=== PATIENT | male | born 1955 | race Caucasian/White ===

== ENCOUNTER → 2024-06-05 | Outpatient (CLI) | payer MEDICARE, SELFPAY ==
[2024-06-05 13:26] LABS: Collection Type, Urine Clean Catch; Squamous Epithelial Cell,Urine 0 /hpf (0-5)
[2024-06-05 13:46] LABS: Basophils % (Auto) 0 % (0-2.5); Eosinophils # (Auto) 0.3 Thou/mm3 (0.0-0.5); Eosinophils % (Auto) 3 % (0-10); Hematocrit 44.4 % (41.0-53.0); Immature Granulocytes % (Auto) 1 % (0-0); Immature Granulocytes Auto 0.05 Thou/mm3 (0.00-0.00); Lymphocytes # (Auto) 0.4 Thou/mm3 (1.0-4.8); Lymphocytes % (Auto) 5 % (10-50); Mean Corpuscular HGB Conc 31.5 g/dl (31.0-37.0); Mean Corpuscular Hemoglobin 30.2 pg (25.0-35.0); Mean Corpuscular Volume 96 fL (80-100); Monocytes # (Auto) 0.7 Thou/mm3 (0.0-0.8); Monocytes % (Auto) 7 % (0-12); Neutrophils # (Auto) 7.3 Thou/mm3 (1.8-7.7); Neutrophils % (Auto) 84 % (37-80); Nucleated Red Blood Cell % 0 /100 WBC (0); Platelet Count 146 Thou/mm3 (140-440); RDW Standard Deviation 51.4 fL (35.1-43.9); Red Blood Count 4.64 Miln/mm3 (4.50-5.90); White Blood Count 8.8 Thou/mm3 (3.8-10.6)
[2024-06-05 13:57] LABS: Bacteria,Urine 1+; Bilirubin,Urine Negative (Negative); Blood,Urine 2+ (Negative); Color,Urine Lt-Yellow (Lt Yel-Yel); Glucose, Urine Negative (Negative); Ketones,Urine Negative (Negative); Leukocyte Esterase,Urine Positive (Negative); Nitrite,Urine Negative (Negative); Protein,Urine 2+ (Neg - Trace); RBC,Urine 47 /hpf (0-3); Specific Gravity,Urine 1.016 (1.001-1.035); Urobilinogen,Urine Negative mg/dL (0.0-1.0); WBC,Urine 425 /hpf (0-5)
[2024-06-05 14:10] LABS: Clarity,Urine Hazy (Clear/Hazy)
[2024-06-05 14:12] LABS: Parathyroid Hormone Intact 97.8 pg/ml (18.5-88.0)
[2024-06-05 14:24] LABS: Alanine Aminotransferase 23 U/L (10-49); Albumin, Serum 4.4 gm/dL (3.4-4.8); Albumin/Globulin Ratio 1.8 (1.2-2.2); Alkaline Phosphatase 132 U/L (46-116); Anion Gap 4 (7-16); Aspartate Amino Transferase 19 U/L (0-34); BUN/Creatinine Ratio 21 Ratio (12-20); Bilirubin,Total 0.6 mg/dL (0.3-1.2); Blood Urea Nitrogen 29 mg/dL (9-23); Carbon Dioxide 33.9 mMol/L (20.0-31.0); Chloride 103 mMol/L (98-107); Cholesterol 149 mg/dL (132-200); Creatinine (Component) 1.4 mg/dL (0.6-1.3); Globulin 2.4 gm/dL (2.3-3.5); Glucose 91 mg/dL (74-106); HDL Cholesterol 50 mg/dL (40-60); LDL Cholesterol,Calculated 79 mg/dL (0-130); Osmolality,Calculated 287 (275-295); Potassium 4.7 mMol/L (3.4-5.1); Sodium 141 mMol/L (136-145); Total Protein 6.8 gm/dL (5.7-8.2); Triglycerides 102 mg/dL (30-150); eGFR 54 See Note
[2024-06-05 14:24] LABS: Creatinine MALB Rnd Ur 82 mg/dL (30-125); Microalbumin Creat Ratio 516 mg/gCrea (<30); Microalbumin, Random Urine 423 mg/L (0-300)
== END | disposition home or self-care (01) ==
LOC: COPL 11:51
PROVIDERS: PCP Family Medicine; Referring Provider Internal Medicine; Visit Provider Internal Medicine
DX: N39.0 Urinary tract infection, site not specified (principal); I12.9 Hypertensive chronic kidney disease with stage 1 through stage 4 chronic kidney disease, or unspecified chronic kidney disease; N18.30 Chronic kidney disease, stage 3 unspecified; E78.5 Hyperlipidemia, unspecified
CPT/HCPCS: 36415; 80053; 80061; 81001; 82043; 82570; 83970; 85025

== ENCOUNTER → 2024-10-05 | Outpatient (CLI) | payer MEDICARE, SELFPAY ==
[2024-10-05 10:04] LABS: Collection Type, Urine Clean Catch
[2024-10-05 10:38] LABS: Basophils % (Auto) 0 % (0-2.5); Eosinophils # (Auto) 0.2 Thou/mm3 (0.0-0.5); Eosinophils % (Auto) 2 % (0-10); Hematocrit 44.1 % (41.0-53.0); Immature Granulocytes % (Auto) 1 % (0-0); Immature Granulocytes Auto 0.05 Thou/mm3 (0.00-0.00); Lymphocytes # (Auto) 0.5 Thou/mm3 (1.0-4.8); Lymphocytes % (Auto) 6 % (10-50); Mean Corpuscular HGB Conc 31.7 g/dl (31.0-37.0); Mean Corpuscular Hemoglobin 30.4 pg (25.0-35.0); Mean Corpuscular Volume 96 fL (80-100); Monocytes # (Auto) 0.6 Thou/mm3 (0.0-0.8); Monocytes % (Auto) 8 % (0-12); Neutrophils # (Auto) 6.7 Thou/mm3 (1.8-7.7); Neutrophils % (Auto) 83 % (37-80); Nucleated Red Blood Cell % 0 /100 WBC (0); Platelet Count 159 Thou/mm3 (140-440); RDW Standard Deviation 46.1 fL (35.1-43.9); White Blood Count 8.1 Thou/mm3 (3.8-10.6)
[2024-10-05 10:52] LABS: Alanine Aminotransferase 14 U/L (10-49); Albumin, Serum 4.2 gm/dL (3.4-4.8); Albumin/Globulin Ratio 1.7 (1.2-2.2); Alkaline Phosphatase 144 U/L (46-116); Anion Gap 7 (7-16); Aspartate Amino Transferase 19 U/L (0-34); BUN/Creatinine Ratio 18 Ratio (12-20); Bilirubin,Total 0.7 mg/dL (0.3-1.2); Blood Urea Nitrogen 21 mg/dL (9-23); Calcium 9.2 mg/dL (8.3-10.6); Calcium (Corrected) 9.2 mg/dL (8.5-10.1); Carbon Dioxide 32.6 mMol/L (20.0-31.0); Cardiac Risk Estimate 2.8 RATIO (4.0-6.7); Chloride 103 mMol/L (98-107); Cholesterol 133 mg/dL (132-200); Creatinine (Component) 1.2 mg/dL (0.6-1.3); Globulin 2.5 gm/dL (2.3-3.5); Glucose 104 mg/dL (74-106); HDL Cholesterol 47 mg/dL (40-60); LDL Cholesterol,Calculated 61 mg/dL (0-130); Osmolality,Calculated 287 (275-295); Potassium 4.4 mMol/L (3.4-5.1); Sodium 143 mMol/L (136-145); Total Protein 6.7 gm/dL (5.7-8.2); Triglycerides 123 mg/dL (30-150); eGFR > 60 See Note
[2024-10-05 10:59] LABS: Creatinine MALB Rnd Ur 82 mg/dL (30-125)
[2024-10-05 11:10] LABS: Amorphous Crystals,Urine Present (Absent); Bacteria,Urine Rare; Bilirubin,Urine Negative (Negative); Blood,Urine 1+ (Negative); Clarity,Urine Turbid (Clear/Hazy); Color,Urine Yellow (Lt Yel-Yel); Glucose, Urine Negative (Negative); Ketones,Urine Negative (Negative); Leukocyte Esterase,Urine Positive (Negative); Nitrite,Urine Positive (Negative); PH,Urine 7.5 (5.0-7.0); Protein,Urine 2+ (Neg - Trace); RBC,Urine 56 /hpf (0-3); Specific Gravity,Urine 1.016 (1.001-1.035); Squamous Epithelial Cell,Urine 1 /hpf (0-5); Urobilinogen,Urine Negative mg/dL (0.0-1.0); WBC,Urine 272 /hpf (0-5)
[2024-10-05 11:15] LABS: Microalbumin Creat Ratio 711 mg/gCrea (<30); Microalbumin, Random Urine 583 mg/L (0-300)
== END | disposition home or self-care (01) ==
PROVIDERS: PCP Internal Medicine; Referring Provider Internal Medicine; Visit Provider Internal Medicine
DX: I10 Essential (primary) hypertension (principal); E78.5 Hyperlipidemia, unspecified
CPT/HCPCS: 36415; 80053; 80061; 81001; 82043; 82570; 85025

== ENCOUNTER → 2024-12-11 | Outpatient (CLI) | payer MEDICARE, SELFPAY ==
[2024-12-11 09:32] LABS: Albumin, Serum 4.7 gm/dL (3.4-4.8); Anion Gap 5 (7-16); BUN/Creatinine Ratio 16 Ratio (12-20); Blood Urea Nitrogen 22 mg/dL (9-23); Calcium 9.2 mg/dL (8.3-10.6); Calcium (Corrected) 9.2 mg/dL (8.5-10.1); Chloride 103 mMol/L (98-107); Creatinine (Component) 1.4 mg/dL (0.6-1.3); Glucose 101 mg/dL (74-106); Osmolality,Calculated 282 (275-295); Phosphorous 3.3 mg/dL (2.4-5.1); Sodium 140 mMol/L (136-145); eGFR 54 See Note
[2024-12-11 09:32] LABS: Creatinine MALB Rnd Ur 65 mg/dL (30-125); Microalbumin Creat Ratio 432 mg/gCrea (<30); Microalbumin, Random Urine 281 mg/L (0-300)
== END | disposition home or self-care (01) ==
LOC: COPL 08:26
PROVIDERS: PCP Internal Medicine; Referring Provider Internal Medicine; Visit Provider Internal Medicine
DX: I12.9 Hypertensive chronic kidney disease with stage 1 through stage 4 chronic kidney disease, or unspecified chronic kidney disease (principal); N18.30 Chronic kidney disease, stage 3 unspecified; R80.0 Isolated proteinuria
CPT/HCPCS: 36415; 80069; 82043; 82570

== ENCOUNTER 2025-02-02 08:51 | Inpatient (IN) | payer MEDICARE, SELFPAY ==
[2025-02-02] VITALS (20 sets, daily range): BP systolic 130–189; BP diastolic 61–77; PULSE 19–110; RESP 10–37; TEMP 36.3–39; O2SAT 89–949; BMI 30.5; BMI 34.4
--- NOTE | 2025-02-02 08:58 | PD.EDSOB ---
ED SOB =RME/HPI General Chief Complaint: General Adult/Misc Complain Stated Complaint: GENERAL WEAKNESS Time Seen by Provider: 02/02/25 09:18 Arrival date/time: 02/02/25 08:51 Limitations: no limitations RME / HPI RME / HPI Narrative: DR. AUGUSTE MAIN ED EVALUATION: 69 year old male with past medical history significant for COPD, hypertension, hypercholesterolemia, bladder cancer, had bladder removed and has ileoconduct presents to the Emergency Department BIB with complaint of shortness of breath. Here, patient had a 102.2 F oral temperature and 101.7 F rectally. Related Data Home Medications ?Medication ?Instructions ?Recorded ?Confirmed albuterol sulfate 90 mcg/actuation 2 puff inhalation Q4H PRN sob #0 07/09/14 12/06/22 aerosol inhaler (ProAir HFA) inhalations tiotropium bromide 18 mcg capsule 1 cap inhalation QDAY #0 puffs 07/09/12/06/22 with inhalation device (Spiriva with HandiHaler) amlodipine 10 mg tablet 10 mg PO HS 10/29/22 12/03/22 baclofen 10 mg tablet 10 mg PO TID 10/29/22 12/03/22 fluticasone 500 mcg-salmeterol 50 1 inh inhalation Q12H 10/29/22 12/03/22 mcg/dose blistr powdr for inhalation (Advair Diskus) ipratropium 0.5 mg-albuterol 3 mg 3 ml inhalation Q6H PRN Dyspnea 10/29/22 12/06/22 (2.5 mg base)/3 mL nebulization soln erythromycin 2 % topical ointment ea topical 12/03/22 Allergies Allergy/AdvReac Type Severity Reaction Status Date / Time heparin Allergy Unknown Verified 04/28/23 17:15 Review of Systems Review of Systems Systems Reviewed: All systems reviewed, normal except as documented Past Medical History Past Medical History CARDIAC: Positive Cardiac Disorders, Hypercholesterolemia and Hypertension RESPIRATORY: Positive Chronic Obstructive Pulmonary Disease (COPD), Bronchitis and Pneumonia GASTROINTESTINAL: Positive Gastrointestinal Disorders and Obesity GENITOURINARY: Positive Genitourinary Disorders (had bladder removed, has ileoconduct) and Renal Disease MUSCULOSKELETAL: Positive Arthritis and Fractures (right arm) ENT: Positive Cataracts (an) OTHER HISTORY: Positive Hospitalization, Chemotherapy and Cancer (bladder cancer) Surgical History SURGICAL: Positive Tonsillectomy and Transurethral Resection Social History SMOKING STATUS: Former smoker SUBSTANCE USE: does not use ALCOHOL: Never ED Exam General Limitations: Present no limitations General appearance: Present alert and other (in respiratory distress, on an oxygen mask) Head Head exam: Present atraumatic, normocephalic and normal inspection Eye Eye exam: Present normal appearance, PERRL and EOMI ENT ENT exam: Present normal exam, normal oropharynx and mucous membranes moist Neck Neck exam: Present normal inspection, full ROM and trachea midline Expanded Neck Exam Neck exam focused ED: Absent JVD Chest Chest inspection: Present normal inspection and symmetric chest wall rise Respiratory Respiratory exam: Present respiratory distress, wheezes (bilateral expiratory wheezing) and other (no rhonchi, no crackles) Cardiovascular Cardiovascular exam: Present normal rhythm, tachycardia and normal heart sounds Abdominal Exam Abdominal exam: Present soft, normal bowel sounds and other (there is an ileoconduct in place in the right side of the abdomen with clear urine); Absent tenderness Extremities Exam Extremities exam: Present full ROM and pedal edema (1+ pitting edema bilaterally; mild venous stasis) Back Exam Back exam: Present normal inspection and full ROM Neurological Exam Neurological exam: Present alert, oriented X3 and CN II-XII intact Psychiatric Psychiatric exam: Present normal affect and normal mood Skin Skin exam: Present warm, dry, intact and normal color Course Course Course Narrative: 0859: Sepsis alert initiated. Orders made at this time are congruent with ED Adult Sepsis Order List. Re-evaluation is to be completed. 0943: Fluids started. 1013: Sepsis reassessment performed consisting of lab review, vitals, physical exam including auscultation of heart, lungs, and visual evaluation of capillary refills, mucosal membranes and extremities. Quality Measures Current suspected stage: sepsis Possible source: pulmonary Blood cultures ordered: yes Antibiotic ordered: Yes Pertinent labs: 02/02/25 09:17 Lactic Acid 1.5 mMol/L (0.4-2.0) sepsis Orders Category Date Time Status Bedside COVID-19 Antigen Test NOW Care 02/02/25 09:50 Active Bedside Influenza A&B Antigen Test NOW Care 02/02/25 09:50 Completed COVID-19 Screening Questionnaire NOW Care 02/02/25 13:02 Active Decision to Admit X1 Care 02/02/25 13:02 Active EKG (ED ONLY) *Do not use* NOW Care 02/02/25 09:19 Completed Insert [Insert IV] NOW Care 02/02/25 09:19 Active CXR [XR chest 1V post procedure] Stat Exams 02/02/25 09:16 Completed EKG (ED Only) Stat Exams 02/02/25 09:19 Draft ABG [Arterial Blood Gas] Stat Lab 02/02/25 09:25 Completed B-Type Natriuretic Peptide Stat Lab 02/02/25 09:40 Completed Blood Culture (Lab) Stat Lab 02/02/25 09:44 Received CBC Stat Lab 02/02/25 09:40 Completed CMP [Comprehensive Metabolic Panel] Stat Lab 02/02/25 09:40 Completed Lactic Acid [Lactate (Lactic Acid)] Stat Lab 02/02/25 09:17 Completed Magnesium Stat Lab 02/02/25 09:40 Completed Partial Thromboplastin Time Stat Lab 02/02/25 09:40 Completed Prothrombin Time with INR Stat Lab 02/02/25 09:40 Completed Troponin I Stat Lab 02/02/25 09:40 Completed Troponin I Stat Lab 02/02/25 11:43 Completed Urinalysis Stat Lab 02/02/25 11:37 Completed ALBUTEROL RT 3ml [Proventil Rt 3ml] Med 02/02/25 09:19 Discontinued 5 mg INH X1 ONE Azithromycin Inj [Zithromax Inj] 500 mg Med 02/02/25 09:21 Discontinued Sodium Chloride 0.9% 250 ml [Ns] 250 ml IV X1 Furosemide Inj [Lasix Inj] Med 02/02/25 09:12 Discontinued 80 mg IVP X1 ONE MethylPREDNISolone.* [SoluMEDROL Inj] Med 02/02/25 09:19 Discontinued 125 mg IVP X1 ONE Sodium Chloride 0.9% 500 ml [Ns] 500 ml Med 02/02/25 09:19 Discontinued IV 999 mls/hr cefTRIAXone [Rocephin] 2 gm Med 02/02/25 09:20 Discontinued SODIUM CHLORIDE 0.9% (Popper) [Ns 0.9% (P)] 50 ml IV X1 BiPAP / CPAP NOW RT 02/02/25 09:46 Active Vital Signs Vital signs: Vital Signs Temperature 102.2 F H 02/02/25 08:59 Pulse Rate 110 H 02/02/25 08:59 Respiratory Rate 21 H 02/02/25 08:59 Blood Pressure 189/61 H 02/02/25 08:59 Pulse Oximetry (%) 89 L 02/02/25 08:59 Oxygen Delivery Method Oxy Mask 02/02/25 08:59 Oxygen Flow Rate 15 02/02/25 08:59 Shortness of Breath / Dyspnea MDM Narrative MDM Narrative:: I, Sandra Huggins, am scribing for and in the presence of Dr. Auguste. Patient has right pneumonia, respiratory failure, exacerbation of COPD, and elevated troponin. Ordered a second trop and plan to admit. Second troponin increasing will admit. Patient data External records reviewed:: [facility] previous records and EMS form Clinical information provided by:: patient and EMS Social determinants that could affect healthcare access:: other (specify) (smoking, former) Patient has the following chronic illnesses:: COPD, hypertension, hypercholesterolemia, bladder cancer, had bladder removed and has ileoconduct. How is presenting disease/condition affected by chronic disease/condition?: caused by Evaluation data The following diagnostics were reviewed and interpreted by me:: lab results, radiology exam(s) and EKG tracing(s) Lab and/or radiology exams considered but not ordered:: none Interpretation Summary: My interpretation: EKG performed at 1014 hours, sinus rhythm, rate 97, right bundle branch block, no STEMI Procedure(s): XR chest 1V post procedure Accession Number(s): [id number] cc: Alberto Garg MD; Radha Davila MD; Abhinav Garcias MD~ Examination: AP chest single view Technique: AP upright portable chest single view Date and time: February 02, 2025, 0927 hrs. Comparison April 28, 2023 Indications: Coughing shortness of breath chest pain beginning today Findings: Opacity right base consistent with pneumonia Mild enlargement cardiac contour Central pulmonary arteries are prominent No pulmonary edema. Moderate osteopenia Impression: Right base pneumonia Suspicious for pulmonary artery hypertension. Dictated By: Alberto Garg MD Medications / Prescriptions Medications or Prescriptions considered but not ordered:: none Medication administrations:: Medication Administration History Discontinued Medications Albuterol (Albuterol Rt 2.5 Mg/3 Ml Nebu) 5 mg INH X1 ONE Stop: 02/02/25 09:20 Last Admin: 02/02/25 09:52 Dose: 5 mg Documented By: HANNAH Furosemide (Furosemide Inj 10 Mg/Ml 4ml Vial) 80 mg IVP X1 ONE Stop: 02/02/25 09:13 Last Admin: 02/02/25 09:16 Dose: Not Given Documented By: KATINA Non-Admin Reason: Discontinued Sodium Chloride (Ns) 500 mls @ 999 mls/hr IV .Q31M ONE Stop: 02/02/25 09:49 Last Infusion: 02/02/25 12:22 Dose: Infused Documented By: Admin: 02/02/25 09:43 Dose: 999 mls/hr Documented By: KATINA Ceftriaxone Sodium 2 gm/ (Sodium Chloride) 50 mls @ 100 mls/hr IV X1 ONE Stop: 02/02/25 09:49 Last Infusion: 02/02/25 12:22 Dose: Infused Documented By: Admin: 02/02/25 09:41 Dose: 100 mls/hr Documented By: KATINA Azithromycin 500 mg/ Sodium (Chloride) 250 mls @ 250 mls/hr IV X1 ONE Stop: 02/02/25 10:20 Last Infusion: 02/02/25 11:00 Dose: Infused Documented By: Admin: 02/02/25 09:41 Dose: 250 mls/hr Documented By: KATINA Methylprednisolone Sodium Succinate (Methylprednisolone Sod Succ 62.5 Mg/Ml 2ml Vial) 125 mg IVP X1 ONE Stop: 02/02/25 09:20 Last Admin: 02/02/25 09:40 Dose: 125 mg Documented By: KATINA see above if any Consultations Consultation(s) initiated? (list below): Yes Consultation #1 (Physician, Specialty, Details): Discussed test HPI, PMHx, lab, radiology results and/or management with resident working with the hospitalist. Will admit for further evaluation and management. Accepts patient for admission. Time: 13:06 Diagnosis Shortness of Breath Differential Diagnosis: acute exacerbation of chronic obstructive airways disease, congestive heart failure, community acquired pneumonia, asthma with exacerbation and pulmonary embolism Most likely diagnosis given after review of the tests above:: Right pneumonia Respiratory failure Exacerbation of COPD Elevated troponin Admission Indicated Admission indicated?: indicated Admission Request Was there a request for admission?: Yes Admission Attestation Admission request attestation: Discussed case with [] from Hospitalist service regarding admission. Discussed patients ED course, exam findings, labs, and radiology results. The Hospitalist [agrees,declines] to accept the patient for admission. Disposition Plan Disposition Plan: Admit Critical Care Time Critical Care Time Critical Care Time: Yes Total Critical Care Time (min.): 40 Attestation: The high probability of sudden, clinically significant deterioration in the patient?s condition required the highest level of my preparedness to intervene urgently. The services I provided to this patient were to treat and/or prevent clinically significant deterioration. Services included the following: chart data review, reviewing nursing notes and/or old charts, documentation time, information consultant collaboration regarding findings and treatment options, medication orders and management, direct patient care, vital sign assessments and ordering, interpreting and reviewing diagnostic studies and lab tests. Aggregate critical care time includes only time during which I was engaged in work directly related to the patient?s care, as described above, whether at bedside or elsewhere in the Emergency Department. It did not include time spent performing other reported procedures or the services of residents, students, nurses or physician assistants. Discharge Plan Prescriptions/Referrals Prescriptions/Med Rec: No Action albuterol sulfate [ProAir HFA] 90 mcg/actuation Hfa Aerosol Inhaler 2 puff INHALATION Q4H PRN (Reason: sob) Qty: 0 Spiriva with HandiHaler 18 mcg Capsule, W/Inhalation Device 1 cap INHALATION QDAY Qty: 0 erythromycin 2 % Ointment TOPICAL ipratropium-albuterol 0.5 mg-3 mg(2.5 mg base)/3 mL Solution For Nebulization 3 ml INHALATION Q6H PRN (Reason: Dyspnea) baclofen 10 mg Tablet 10 mg PO TID amlodipine 10 mg Tablet 10 mg PO HS fluticasone propion-salmeterol [Advair Diskus] 500-50 mcg/dose Blister With Device 1 inh INHALATION Q12H Referrals: Radha Davila MD [Primary Care Provider] - In 1 week Problem List Clinical Impression: Pneumonia involving right lung, COPD exacerbation, Elevated troponin, Respiratory failure Patient/Caregiver Discharge Instructions Print Language: Wolof
--- NOTE | 2025-02-02 09:16 | XR_ITS ---
Examination: AP chest single view Technique: AP upright portable chest single view Date and time: February 02, 2025, 0927 hrs. Comparison April 28, 2023 Indications: Coughing shortness of breath chest pain beginning today Findings: Opacity right base consistent with pneumonia Mild enlargement cardiac contour Central pulmonary arteries are prominent No pulmonary edema. Moderate osteopenia Impression: Right base pneumonia Suspicious for pulmonary artery hypertension.
--- NOTE | 2025-02-02 09:19 | EKG_ITS ---
[facility] Test Date: 2025-02-02 Pat Name: EMILIANO FREGOSO Department: Room: - Gender: Male Machine Maintenance: : 1955 Requested By: Mihai Ann Order Number: [id number] Reading MD: Mihai Ann Measurements Intervals [place] Rate: 97 P: 63 VA: 156 QRS: -15 QRSD: 124 T: 37 QT: 323 QTc: 411 Interpretive Statements SINUS RHYTHM INDETERMINATE AXIS RIGHT BUNDLE BRANCH BLOCK [120+ ms QRS DURATION, UPRIGHT V1, 40+ ms S IN I/aVL/V4/V5/V6] Compared to ECG 10/29/2022 09:55:23 Indeterminate axis now present Atrial fibrillation no longer present Left-axis deviation no longer present /store/S0/[id number]/ecg/[id number].pdf
[2025-02-02 09:32] LABS: Base Excess 0 (-3-3); HCO3 30 mEq/L (20-26); Inspired Oxygen, FIO2 21 %; O2 Saturation 92 % (91-98); PCO2 75 mmHg (32.0-48.0); PO2 77 mmHg (83-108); pH, Arterial 7.21 (7.35-7.45)
[2025-02-02 09:33] LABS: Allen Test Performed/OK; Puncture Site Left Radial
[2025-02-02] MEDS: MethylPREDNISolone SOD SUCC 62.5 MG/ML 2ML VIAL 125 MG IVP (09:40)
[2025-02-02] MEDS: cefTRIAXone 2 GM in SODIUM CHLORIDE 0.9% (Popper) 50 ML IV (09:41)
[2025-02-02] MEDS: AZITHROMYCIN INJ 500 MG in SODIUM CHLORIDE 0.9% 250 ML 250 ML 250 MG IV (09:41)
[2025-02-02] MEDS: SODIUM CHLORIDE 0.9% 500 ML 500 ML 999 ML IV (09:43)
[2025-02-02] MEDS: ALBUTEROL RT 2.5 MG/3 ML NEBU 5 MG INH (09:52)
[2025-02-02 09:58] LABS: Lactate (Lactic Acid) 1.5 mMol/L (0.4-2.0)
[2025-02-02 10:15] LABS: INR 1.0 (0.9-1.3); Partial Thromboplastin Time 28.2 Seconds (22.0-36.0); Prothrombin Time 11.2 Seconds (9.0-12.2)
[2025-02-02 10:20] LABS: B-Type Natriuretic Peptide 42 pg/mL (0-100)
[2025-02-02 10:29] LABS: Basophils # (Auto) 0.0 Thou/mm3 (0.0-0.2); Basophils % (Auto) 0 % (0-2.5); Eosinophils # (Auto) 0.0 Thou/mm3 (0.0-0.5); Eosinophils % (Auto) 0 % (0-10); Hematocrit 43.5 % (41.0-53.0); Hemoglobin 13.6 g/dL (13.5-16.0); Immature Granulocytes Auto 0.09 Thou/mm3 (0.00-0.00); Lymphocytes # (Auto) 0.2 Thou/mm3 (1.0-4.8); Lymphocytes % (Auto) 3 % (10-50); Mean Corpuscular HGB Conc 31.3 g/dl (31.0-37.0); Mean Corpuscular Hemoglobin 30.8 pg (25.0-35.0); Mean Corpuscular Volume 99 fL (80-100); Monocytes # (Auto) 0.8 Thou/mm3 (0.0-0.8); Monocytes % (Auto) 11 % (0-12); Neutrophils # (Auto) 6.1 Thou/mm3 (1.8-7.7); Neutrophils % (Auto) 85 % (37-80); Nucleated Red Blood Cell # 0.00 Thou/mm3 (0.00-0.00); Nucleated Red Blood Cell % 0 /100 WBC (0); Platelet Count 170 Thou/mm3 (140-440); RDW Standard Deviation 49.4 fL (35.1-43.9); Red Blood Count 4.41 Miln/mm3 (4.50-5.90); White Blood Count 7.2 Thou/mm3 (3.8-10.6)
[2025-02-02 10:39] LABS: Alanine Aminotransferase 44 U/L (10-49); Albumin, Serum 4.1 gm/dL (3.4-4.8); Albumin/Globulin Ratio 1.4 (1.2-2.2); Alkaline Phosphatase 114 U/L (46-116); Anion Gap 6 (7-16); Aspartate Amino Transferase 41 U/L (0-34); BUN/Creatinine Ratio 14 Ratio (12-20); Bilirubin,Total 0.8 mg/dL (0.3-1.2); Blood Urea Nitrogen 23 mg/dL (9-23); Calcium 8.9 mg/dL (8.3-10.6); Calcium (Corrected) 8.9 mg/dL (8.5-10.1); Carbon Dioxide 30.8 mMol/L (20.0-31.0); Chloride 104 mMol/L (98-107); Creatinine (Component) 1.6 mg/dL (0.6-1.3); Estimated Creatinine Clearance 51.6 mL/min (>60); Globulin 2.9 gm/dL (2.3-3.5); Glucose 182 mg/dL (74-106); Magnesium 2.0 mg/dL (1.6-2.6); Osmolality,Calculated 289 (275-295); Potassium 4.9 mMol/L (3.4-5.1); Sodium 141 mMol/L (136-145); Total Protein 7.0 gm/dL (5.7-8.2); eGFR 46 See Note
[2025-02-02 10:40] LABS: Troponin I 0.067 ng/mL (0.0-0.045)
[2025-02-02 11:53] LABS: Collection Type, Urine Clean Catch; RBC,Urine 0 /hpf (0-3); Squamous Epithelial Cell,Urine 0 /hpf (0-5)
[2025-02-02 12:01] LABS: Bacteria,Urine Rare; Bilirubin,Urine Negative (Negative); Blood,Urine Negative (Negative); Clarity,Urine Turbid (Clear/Hazy); Color,Urine Yellow (Lt Yel-Yel); Glucose, Urine Negative (Negative); Ketones,Urine Negative (Negative); Leukocyte Esterase,Urine Positive (Negative); Nitrite,Urine Positive (Negative); PH,Urine 8.0 (5.0-7.0); Protein,Urine 2+ (Neg - Trace); Specific Gravity,Urine 1.016 (1.001-1.035); Urobilinogen,Urine Negative mg/dL (0.0-1.0); WBC,Urine 11 /hpf (0-5)
[2025-02-02 12:51] LABS: Troponin I 0.090 ng/mL (0.0-0.045)
[2025-02-02] MEDS: ALBUTEROL/IPRATROPIUM (Duoneb) RT SOL 3 ML NEBU INH ×3 (14:59→22:39)
[2025-02-02] MEDS: guaiFENesin/DM TABLET 2 EACH PO (15:27)
[2025-02-02] MEDS: SODIUM CHLORIDE 0.9% 1000 ML 1,000 ML 75 ML IV (15:30)
--- NOTE | 2025-02-02 15:31 | PD.HHHP ---
Documentation for date of: 02/02/25 HPI - Hospitalist History of Present Illness History of present illness: Patient is a 69 years old male with past medical history of COPD on home oxygen, hypertension, hypercholesterolemia, bladder cancer status post cystectomy and ileal conduit who presented to the ED with complaint of shortness of breath. At the time of exam, patient is already on BiPAP and not able to provide detailed history. Stated that he has been having worsening cough with sputum production along with shortness of breath. He also said yes for febrile episodes at home. Denies any chest pain, headache, nausea vomiting. In the ED, initial vitals show blood pressure of 189/61, pulse 110, respiratory rate 21, temperature 102.2 ?F and oxygen saturation of 89% on 15 L oxy mask. Patient was then started on BiPAP, currently saturating well. Lab results are significant for creatinine of 1.6, baseline appears to be around 1.2-1.3. Troponin elevated at 0.067, up trended to 0.090. Urinalysis showed 2+ protein and 11 WBCs along with rare bacteria. Patient denied any urinary symptoms. Chest x-ray was obtained, which showed right base pneumonia and suspicion for pulmonary artery hypertension. EKG showed sinus rhythm, right bundle branch block without ST elevation. Past medical history: Hypertension, hypercholesterolemia, COPD, bladder cancer Past surgical history: Cystectomy with ileal conduit Social history: Previous smoker, does not use alcohol or illicit drugs Review of Systems Review of Systems Systems Reviewed: All systems reviewed, normal except as documented Meds Home Medications and Allergies Home Medications ?Medication ?Instructions ?Recorded ?Confirmed ?Type albuterol sulfate 90 mcg/actuation 2 puff inhalation Q4H PRN sob #0 07/09/14 12/06/22 History aerosol inhaler (ProAir HFA) inhalations tiotropium bromide 18 mcg capsule 1 cap inhalation QDAY #0 puffs 07/09/14 12/06/22 History with inhalation device (Spiriva with HandiHaler) amlodipine 10 mg tablet 10 mg PO HS 10/29/22 12/03/22 History baclofen 10 mg tablet 10 mg PO TID 10/29/22 12/03/22 History fluticasone 500 mcg-salmeterol 50 1 inh inhalation Q12H 10/29/22 12/03/22 History mcg/dose blistr powdr for inhalation (Advair Diskus) ipratropium 0.5 mg-albuterol 3 mg 3 ml inhalation Q6H PRN Dyspnea 10/29/22 12/06/22 History (2.5 mg base)/3 mL nebulization soln erythromycin 2 % topical ointment ea topical 12/03/22 History Allergies Allergy/AdvReac Type Severity Reaction Status Date / Time heparin Allergy Unknown Verified 04/28/23 17:15 Exam Vital Signs Temp Pulse Resp BP Pulse Ox O2 Del Method O2 Flow Rate 99.8 F 87 27 H 147/67 H 96 BiPAP 15 02/02/25 12:34 02/02/25 14:59 02/02/25 14:59 02/02/25 12:34 02/02/25 14:59 02/02/25 12:34 02/02/25 08:59 FiO2 50 02/02/25 14:59 Narrative General: Patient is AAOx4, currently on BiPAP, appears on mild respiratory distress HEENT: normocephalic/atraumatic, vitreous and conjunctival injection, no icterus, patent nares, dry mucosal membranes Lungs: Bilateral wheezing and decreased air entry CVS: S1, S2, RRR, no MGR Abd: Soft, nontender, urostomy bag noted in the RLQ EXT: Trace pedal edema Neuro: Moving all his limbs spontaneously, cranial nerves grossly intact, no focal neurological deficit Results - Hospitalist Labs Diagrams: 02/02/25 09:40 02/02/25 09:40 Labs: Short CBC 02/02/25 Range/Units 09:40 WBC 7.2 (3.8-10.6) Thou/mm3 Hgb 13.6 (13.5-16.0) g/dL Hct 43.5 (41.0-53.0) % Plt Count 170 (140-440) Thou/mm3 BMP 02/02/25 09:40 Sodium 141 Potassium 4.9 Chloride 104 Carbon Dioxide 30.8 BUN 23 Creatinine 1.6 H Glucose 182 H Calcium 8.9 Cardiac Enzymes 02/02/25 02/02/25 Range/Units 09:40 11:43 Troponin I 0.067 H* 0.090 H* (0.0-0.045) ng/mL Liver Function 02/02/25 Range/Units 09:40 Total Bilirubin 0.8 (0.3-1.2) mg/dL AST 41 H (0-34) U/L ALT 44 (10-49) U/L Alkaline Phosphatase 114 (46-116) U/L Albumin 4.1 (3.4-4.8) gm/dL Urine 02/02/25 Range/Units 11:37 Urine Color Yellow (Lt Yel-Yel) Urine Clarity Turbid A (Clear/Hazy) Urine pH 8.0 H (5.0-7.0) Ur Specific [place] 1.016 (1.001-1.035) Urine Protein 2+ A (Neg - Trace) Urine Glucose (UA) Negative (Negative) ABG Interpretation ABG results: 02/02/25 09:25 ABG pH 7.21 L ABG pCO2 75 H* ABG pO2 77 L ABG HCO3 30 H ABG O2 Saturation 92 ABG Base Excess 0 Assessment & Plan -Hospitalist Additional Plan Additional Plan: Patient is a 69 years old male with past medical history of COPD on home oxygen, hypertension, hypercholesterolemia, bladder cancer status post cystectomy and ileal conduit who presented to the ED with complaint of shortness of breath. Found to be septic, acute on chronic hypoxic respiratory failure needing BiPAP. After examination of the patient and review of the clinical data I feel that this patient needs admission to the hospital for further treatment/evaluation. #Acute on chronic hypoxic hypercapnic respiratory failure #COPD exacerbation #Community-acquired pneumonia #Respiratory acidosis with metabolic alkalosis Patient presented with worsening shortness of breath, cough with sputum production and fever Was found to have right base pneumonia on chest x-ray Initial ABG showed pH of 7.21, [id number] and HCO3 of 30.8 Started patient on IV Rocephin and doxycycline along with methylprednisolone Added DuoNebs, guaifenesin Supplemental oxygen via BiPAP, we will add/setting as needed #Sepsis Likely secondary to pneumonia Patient presented with temperature of 102.2 ?F, pulse 110, respiratory rate 21, meeting 3/4 SIRS criteria Evidence of endorgan damage with MARYANN and elevated troponin Lactate level within normal limits Started on IV antibiotics, cultures obtained Received 500 cc normal saline bolus, started on gentle IV hydration, did not receive full 30 cc/kg as patient has trace pedal edema #Acute kidney injury on CKD Baseline creatinine appears to be around 1.2-1.3 Has BUN/creatinine of 23/1.6 today Received 500 cc bolus and started on gentle IV hydration Avoid nephrotoxin, monitor with daily CMP, strict LESA's #Elevated troponin Likely NSTEMI type II from demand ischemia Troponin initially was 0.067, went up to 0.090 Denies any cardiac symptoms EKG shows sinus rhythm, right bundle branch block but no ST elevation We will trend troponin and monitor for symptoms closely #Hypertension Resumed home amlodipine, will continue to monitor blood pressure and adjust antihypertensive regimen #Hypercholesterolemia Resumed home atorvastatin CODE STATUS: Full code Diet: N.p.o.(patient is on BiPAP, okay to take sips of water with medication) DVT prophylaxis: Lovenox SC Disposition: Telemetry for management of acute on chronic hypoxic hypercapnic respiratory failure and sepsis secondary to pneumonia Davida Jeffrey MD Quality Measures Quality Measures sepsis Current suspected stage: sepsis Possible source: pulmonary Blood cultures ordered: yes Antibiotic ordered: Yes Advance care planning discussed with:: patient
[2025-02-02 16:39] LABS: Base Excess 0 (-3-3); HCO3 30 mEq/L (20-26); Inspired Oxygen, FIO2 60 %; O2 Saturation 92 % (91-98); PCO2 73 mmHg (32.0-48.0); PO2 68 mmHg (83-108); pH, Arterial 7.21 (7.35-7.45)
[2025-02-02 16:41] LABS: Allen Test Performed/OK; Puncture Site Right Radial
[2025-02-02 19:18] LABS: Troponin I 0.107 ng/mL (0.0-0.045)
[2025-02-02] MEDS: DOXYCYCLINE INJ 100 MG in SODIUM CHLORIDE 0.9% (POP) 100 ML IV (20:35)
[2025-02-02] MEDS: ATORVASTATIN CALCIUM 20 MG TABLET PO (20:35)
[2025-02-03] VITALS (16 sets, daily range): BP systolic 114–126; BP diastolic 53–62; PULSE 71–95; RESP 10–22; TEMP 36.2–36.4; O2SAT 85–98; BMI 34.4
[2025-02-03] MEDS: guaiFENesin/DM TABLET 2 EACH PO ×4 (00:11→22:40)
[2025-02-03 01:22] LABS: Troponin I 0.079 ng/mL (0.0-0.045)
[2025-02-03] MEDS: ALBUTEROL/IPRATROPIUM (Duoneb) RT SOL 3 ML NEBU INH ×6 (03:00→23:00)
[2025-02-03] MEDS: SODIUM CHLORIDE 0.9% 1000 ML 1,000 ML 75 ML IV (05:24)
[2025-02-03 06:17] LABS: Basophils # (Auto) 0.0 Thou/mm3 (0.0-0.2); Basophils % (Auto) 0 % (0-2.5); Eosinophils # (Auto) 0.0 Thou/mm3 (0.0-0.5); Eosinophils % (Auto) 0 % (0-10); Hematocrit 38.3 % (41.0-53.0); Hemoglobin 11.7 g/dL (13.5-16.0); Immature Granulocytes Auto 0.04 Thou/mm3 (0.00-0.00); Lymphocytes # (Auto) 0.2 Thou/mm3 (1.0-4.8); Lymphocytes % (Auto) 5 % (10-50); Mean Corpuscular HGB Conc 30.5 g/dl (31.0-37.0); Mean Corpuscular Hemoglobin 30.2 pg (25.0-35.0); Mean Corpuscular Volume 99 fL (80-100); Monocytes # (Auto) 0.4 Thou/mm3 (0.0-0.8); Monocytes % (Auto) 8 % (0-12); Neutrophils # (Auto) 4.5 Thou/mm3 (1.8-7.7); Neutrophils % (Auto) 87 % (37-80); Nucleated Red Blood Cell # 0.00 Thou/mm3 (0.00-0.00); Nucleated Red Blood Cell % 0 /100 WBC (0); Platelet Count 139 Thou/mm3 (140-440); RDW Standard Deviation 49.6 fL (35.1-43.9); Red Blood Count 3.88 Miln/mm3 (4.50-5.90); White Blood Count 5.1 Thou/mm3 (3.8-10.6)
[2025-02-03 07:10] LABS: Alanine Aminotransferase 41 U/L (10-49); Albumin, Serum 3.5 gm/dL (3.4-4.8); Albumin/Globulin Ratio 1.4 (1.2-2.2); Alkaline Phosphatase 93 U/L (46-116); Anion Gap 9 (7-16); Aspartate Amino Transferase 49 U/L (0-34); BUN/Creatinine Ratio 19 Ratio (12-20); Bilirubin,Total 0.4 mg/dL (0.3-1.2); Blood Urea Nitrogen 33 mg/dL (9-23); Calcium 7.8 mg/dL (8.3-10.6); Calcium (Corrected) 8.2 mg/dL (8.5-10.1); Carbon Dioxide 28.7 mMol/L (20.0-31.0); Cardiac Risk Estimate 3.1 RATIO (4.0-6.7); Chloride 107 mMol/L (98-107); Cholesterol 106 mg/dL (132-200); Creatinine (Component) 1.7 mg/dL (0.6-1.3); Estimated Creatinine Clearance 50.0 mL/min (>60); Globulin 2.5 gm/dL (2.3-3.5); Glucose 148 mg/dL (74-106); HDL Cholesterol 34 mg/dL (40-60); LDL Cholesterol,Calculated 54 mg/dL (0-130); Magnesium 1.6 mg/dL (1.6-2.6); Osmolality,Calculated 298 (275-295); Phosphorous 4.1 mg/dL (2.4-5.1); Potassium 5.4 mMol/L (3.4-5.1); Sodium 145 mMol/L (136-145); Total Protein 6.0 gm/dL (5.7-8.2); Triglycerides 89 mg/dL (30-150); eGFR 43 See Note
[2025-02-03 07:14] LABS: Troponin I 0.059 ng/mL (0.0-0.045)
[2025-02-03 07:15] LABS: Glucose Estimated Average 108 mg/dL (80-131); Hemoglobin A1C 5.4 % Hgb (4.8-6.0)
[2025-02-03 08:09] LABS: Base Excess 0 (-3-3); HCO3 28 mEq/L (20-26); Inspired O2, VO2 Liters 12 L/min; Inspired Oxygen, FIO2 21 %; O2 Saturation 91 % (91-98); PCO2 64 mmHg (32.0-48.0); PO2 61 mmHg (83-108); pH, Arterial 7.25 (7.35-7.45)
[2025-02-03 08:11] LABS: Allen Test Performed/OK; Puncture Site Right Radial
[2025-02-03] MEDS: Magnesium Sulfate 4 GM Ivpb 4 GM/50 ML BAG IV (08:44)
[2025-02-03] MEDS: DOXYCYCLINE INJ 100 MG in SODIUM CHLORIDE 0.9% (POP) 100 ML IV ×2 (08:44→20:32)
[2025-02-03] MEDS: ENOXAPARIN SOD INJ 40 MG/0.4 ML SYRINGE SC (08:45)
[2025-02-03] MEDS: CALCIUM GLUCONATE 10% INJ 1 GM/10 ML VIAL IV (08:45)
--- NOTE | 2025-02-03 09:49 | ESPR_ITS ---
Documentation for date of: 02/03/25 Subjective Subjective Interval history: Patient reports that his breathing is better today. He has had a decrease in cough but still requires occasional suctioning of sputum. Denies chest pain or tightness. Prefers oxygen mask (currently on 10L) over BiPAP, although O2 saturation remains around 88%. Denies fever, chills, nausea, or vomiting. No issues with his urostomy bag, but notes that it has not been changed in over a week. Alert and oriented. Exam Vital Signs Temp Pulse Resp BP Pulse Ox O2 Del Method O2 Flow Rate 97.2 F 90 16 123/53 L 89 L Oxy Mask 10 02/03/25 08:00 02/03/25 08:45 02/03/25 08:00 02/03/25 08:45 02/03/25 08:00 02/03/25 08:00 02/03/25 08:00 FiO2 50 02/03/25 04:00 Narrative Exam General: Patient is AAOx4, currently on BiPAP, appears on mild respiratory distress HEENT: normocephalic/atraumatic, vitreous and conjunctival injection, no icterus, patent nares, dry mucosal membranes Lungs: Bilateral wheezing and decreased air entry CVS: S1, S2, RRR, no MGR Abd: Soft, nontender, urostomy bag noted in the RLQ EXT: Trace pedal edema Neuro: Moving all his limbs spontaneously, cranial nerves grossly intact, no focal neurological deficit Objective Labs 02/04/25 05:24 02/04/25 14:30 Labs: Laboratory Results - last 24 hr 02/02/25 02/02/25 02/02/25 09:17 09:40 11:37 WBC 7.2 RBC 4.41 L Hgb 13.6 Hct 43.5 MCV 99 MCH 30.8 MCHC 31.3 RDW Std Deviation 49.4 H Plt Count 170 Neut % (Auto) 85 H Lymph % (Auto) 3 L [place] % (Auto) 11 Eos % (Auto) 0 Baso % (Auto) 0 Neut # (Auto) 6.1 Lymph # (Auto) 0.2 L [place] # (Auto) 0.8 Eos # (Auto) 0.0 Baso # (Auto) 0.0 Immature Gran # (Auto) 0.09 H Absolute Nucleated RBC 0.00 Immature Gran % 1 H Nucleated RBC % 0 PT 11.2 INR 1.0 APTT 28.2 Puncture Site ABG pH ABG pCO2 ABG pO2 ABG HCO3 ABG O2 Saturation ABG Base Excess Oxygen Liter Flow FiO2 Sodium 141 Potassium 4.9 Chloride 104 Carbon Dioxide 30.8 Anion Gap 6 L BUN 23 Creatinine 1.6 H Estim Creat Clear Calc 51.6 L eGFR 46 L BUN/Creatinine Ratio [address] Glu mg/dL Hemoglobin A1c Calculated Osmolality 289 Lactic Acid 1.5 Calcium 8.9 Corrected Calcium 8.9 Phosphorus Magnesium 2.0 Total Bilirubin 0.8 AST 41 H ALT 44 Alkaline Phosphatase 114 Troponin I 0.067 H* B-Natriuretic Peptide 42 Total Protein 7.0 Albumin 4.1 Globulin 2.9 Albumin/Globulin Ratio 1.4 Triglycerides Cholesterol LDL Cholesterol, Calc HDL Cholesterol Cholesterol/HDL Ratio Ur Collection Type Clean Catch Urine Color Yellow Urine Clarity Turbid A Urine pH 8.0 H Ur Specific [place] 1.016 Urine Protein 2+ A Urine Glucose (UA) Negative Urine Ketones Negative Urine Blood Negative Urine Nitrite Positive Urine Bilirubin Negative Urine Urobilinogen (Auto) Negative Ur Leukocyte Esterase Positive Urine RBC 0 Urine WBC 11 H Ur Squamous Epith Cells 0 Urine Bacteria Rare 02/02/25 02/02/25 02/02/25 11:43 16:35 18:27 WBC RBC Hgb Hct MCV MCH MCHC RDW Std Deviation Plt Count Neut % (Auto) Lymph % (Auto) [place] % (Auto) Eos % (Auto) Baso % (Auto) Neut # (Auto) Lymph # (Auto) [place] # (Auto) Eos # (Auto) Baso # (Auto) Immature Gran # (Auto) Absolute Nucleated RBC Immature Gran % Nucleated RBC % PT INR APTT Puncture Site Right Radial ABG pH 7.21 L ABG pCO2 73 H* ABG pO2 68 L ABG HCO3 30 H ABG O2 Saturation 92 ABG Base Excess 0 Oxygen Liter Flow FiO2 60 Sodium Potassium Chloride Carbon Dioxide Anion Gap BUN Creatinine Estim Creat Clear Calc eGFR BUN/Creatinine Ratio Glucose Estimated Ave Glu mg/dL Hemoglobin A1c Calculated Osmolality Lactic Acid Calcium Corrected Calcium Phosphorus Magnesium Total Bilirubin AST ALT Alkaline Phosphatase Troponin I 0.090 H* 0.107 H* B-Natriuretic Peptide Total Protein Albumin Globulin Albumin/Globulin Ratio Triglycerides Cholesterol LDL Cholesterol, Calc HDL Cholesterol Cholesterol/HDL Ratio Ur Collection Type Urine Color Urine Clarity Urine pH Ur Specific [place] Urine Protein Urine Glucose (UA) Urine Ketones Urine Blood Urine Nitrite Urine Bilirubin Urine Urobilinogen (Auto) Ur Leukocyte Esterase Urine RBC Urine WBC Ur Squamous Epith Cells Urine Bacteria 02/03/25 02/03/25 02/03/25 00:43 05:16 08:03 WBC 5.1 RBC 3.88 L Hgb 11.7 L Hct 38.3 L MCV 99 MCH 30.2 MCHC 30.5 L RDW Std Deviation 49.6 H Plt Count 139 L D Neut % (Auto) 87 H Lymph % (Auto) 5 L [place] % (Auto) 8 Eos % (Auto) 0 Baso % (Auto) 0 Neut # (Auto) 4.5 Lymph # (Auto) 0.2 L [place] # (Auto) 0.4 Eos # (Auto) 0.0 Baso # (Auto) 0.0 Immature Gran # (Auto) 0.04 H Absolute Nucleated RBC 0.00 Immature Gran % 1 H Nucleated RBC % 0 PT INR APTT Puncture Site Right Radial ABG pH 7.25 L ABG pCO2 64 H ABG pO2 61 L ABG HCO3 28 H ABG O2 Saturation 91 ABG Base Excess 0 Oxygen Liter Flow 12 FiO2 21 Sodium 145 Potassium 5.4 H D Chloride 107 Carbon Dioxide 28.7 Anion Gap 9 BUN 33 H Creatinine 1.7 H Estim Creat Clear Calc 50.0 L eGFR 43 L BUN/Creatinine Ratio 19 [address]ucose [address] Glu mg/dL 108 Hemoglobin A1c 5.4 Calculated Osmolality 298 H Lactic Acid Calcium 7.8 L Corrected Calcium 8.2 L Phosphorus 4.1 Magnesium 1.6 Total Bilirubin 0.4 AST 49 H ALT 41 Alkaline Phosphatase 93 D Troponin I 0.079 H* 0.059 H* B-Natriuretic Peptide Total Protein 6.0 Albumin 3.5 D Globulin 2.5 Albumin/Globulin Ratio 1.4 Triglycerides 89 Cholesterol 106 L LDL Cholesterol, Calc 54 HDL Cholesterol 34 L Cholesterol/HDL Ratio 3.1 L Ur Collection Type Urine Color Urine Clarity Urine pH Ur Specific [place] Urine Protein Urine Glucose (UA) Urine Ketones Urine Blood Urine Nitrite Urine Bilirubin Urine Urobilinogen (Auto) Ur Leukocyte Esterase Urine RBC Urine WBC Ur Squamous Epith Cells Urine Bacteria ABG Interpretation ABG results: 02/02/25 02/02/25 02/03/25 09:25 16:35 08:03 ABG pH 7.21 L 7.21 L 7.25 L ABG pCO2 75 H* 73 H* 64 H ABG pO2 77 L 68 L 61 L ABG HCO3 30 H 30 H 28 H ABG O2 Saturation 92 92 91 ABG Base Excess 0 0 0 Quality Measures Quality Measures sepsis Current suspected stage: sepsis Possible source: pulmonary Blood cultures ordered: yes Antibiotic ordered: Yes Advance care planning discussed with:: patient Assessment & Plan Assessment Current Active Medications: Generic Name Dose Route Start Last Admin Trade Name Freq PRN Reason Stop Dose Admin Acetaminophen 650 mg 02/02/25 14:37 Acetaminophen 325 Mg Tablet PO 03/04/25 14:36 Q6H PRN Fever >101.5 Acetaminophen 650 mg 02/02/25 14:37 Acetaminophen 325 Mg Tablet PO 03/04/25 14:36 Q6H PRN PAIN SCALE 1-3 (mild Hydrocodone Bitart/Acetaminophen 1 tab 02/02/25 14:37 Hydrocodone/Apap 10/325 Tab PO 02/07/25 14:36 Q6H PRN PAIN SCALE 4-6 (Moderate Albuterol/Ipratropium 3 ml 02/02/25 15:00 02/03/25 07:35 Albuterol/Ipratropium (Duoneb) Rt Kacy 3 Ml Nebu INH 03/04/25 14:59 3 ml Q4HRRT BLAISE Administration Amlodipine Besylate 10 mg 02/03/25 09:00 02/03/25 08:45 Amlodipine Besylate 5 Mg Tablet PO 03/05/25 08:59 10 mg QDAY BLAISE Administration Atorvastatin Calcium 20 mg 02/02/25 21:00 02/02/25 20:35 Atorvastatin Calcium 20 Mg Tablet PO 03/04/25 20:59 20 mg HS BLAISE Administration Enoxaparin Sodium 40 mg 02/03/25 09:00 02/03/25 08:45 Enoxaparin Sod Inj 40 Mg/0.4 Ml Syringe SC 02/17/25 08:59 40 mg QDAY BLAISE Administration Guaifenesin/Dextromethorphan 2 each 02/02/25 15:00 02/03/25 06:08 Guaifenesin/Dm Tablet PO 03/04/25 14:59 2 each Q8H BLAISE Administration Sodium Chloride 1,000 mls @ 75 mls/hr 02/02/25 14:45 02/03/25 05:24 Ns IV 03/04/25 14:44 75 mls/hr .[id number] BLAISE Administration Ceftriaxone Sodium/Dextrose 1 gm in 50 mls @ 100 mls/hr 02/03/25 09:00 Rocephin/D5w 1gm Iv Premix IV 02/10/25 08:59 QDAY BLAISE Doxycycline Hyclate 100 mg/ 100 mls @ 100 mls/hr 02/02/25 21:00 02/03/25 08:44 Sodium Chloride IV 02/09/25 20:59 100 mls/hr BID BLAISE Administration Magnesium Sulfate 4 gm in 50 mls @ 12.5 mls/hr 02/03/25 07:36 02/03/25 08:44 Magnesium Sulfate Ivpb IV 02/03/25 11:35 12.5 mls/hr X1 ONE Administration Methylprednisolone Sodium Succinate 40 mg 02/03/25 09:00 02/03/25 08:45 Methylprednisolone Sod Succ 40 Mg Vial IVP 02/10/25 08:59 40 mg QDAY BLAISE Administration Ondansetron HCl 4 mg 02/02/25 14:37 Ondansetron Inj 2 Mg/Ml Inj 2 Ml IVP 03/04/25 14:36 Q6H PRN NAUSEA OR VOMITING Protocol Plan 69M with COPD on home O2, HTN, HLD, s/p cystectomy with ileal conduit, admitted for acute on chronic hypoxic hypercapnic respiratory failure and sepsis secondary to CAP. #Acute on chronic hypoxic hypercapnic respiratory failure Initially hypoxic and hypercapnic (ABG pH 7.21 / CO2 75), improved with BiPAP. This AM, still hypercapnic on oxygen mask (CO2 64), BiPAP restarted. VBG this afternoon showed resolution of hypercapnia (pH 7.38 / CO2 43), so BiPAP was discontinued again. Plan: * Monitor respiratory status closely * Restart BiPAP if blood gases worsen * Maintain on oxygen mask as tolerated * Repeat ABG/VBG if worsening symptoms * Continue DuoNebs, guaifenesin * Tolerating diet --> continue PO #COPD exacerbation Likely triggered by infection. Improving clinically. Plan: * Continue methylprednisolone * Continue nebulizers and mucolytics * Encourage pulmonary hygiene #Community-acquired pneumonia Initial CXR with right base infiltrate. Now afebrile, improved sputum clearance. Plan: * Continue IV ceftriaxone + doxycycline * Monitor WBC, consider CXR in 48?72 hrs if needed #Sepsis, likely secondary to pneumonia Met SIRS criteria on admission, now improving clinically. Plan: * Continue antibiotics * Monitor vitals, lactate (was WNL), and perfusion * Strict I/Os #MARYANN on CKD Cr increased to 1.7 from baseline of 1.2?1.3. Plan: * Hold nephrotoxins * Monitor renal function daily * IV fluids as tolerated #Electrolyte abnormalities Potassium 5.4 (likely multifactorial) Magnesium 1.6, Calcium 7.8 Plan: * Magnesium + calcium repleted * Continue to monitor potassium ? no signs of EKG changes * Continue albuterol for mild hyperkalemia support * Monitor lytes qAM #Elevated troponin ? likely Type II NSTEMI No chest pain. Troponin trended up mildly (0.067 --> 0.090-->0.100-->0.059), stable EKG. Peak 0.1 now downtrending Plan: * Discontinued troponin trend. * Monitor symptoms * No anticoag needed beyond DVT ppx #Hypertension Stable, no urgent issues Plan: * Continue amlodipine #Hyperlipidemia Plan: * Continue atorvastatin #Urostomy care Bag not changed in over a week Plan: * Request WOCN nurse to change urostomy bag * Monitor for skin breakdown, signs of UTI Health Maintenance: * Code Status: Full * Diet: Cardiac, patient tolerating * Fluids: Maintenance IVFs discontinued; PO hydration adequate * DVT Prophylaxis: Continue enoxaparin * Disposition: Telemetry, continue monitoring respiratory status and electrolytes ----- Plan discussed with attending physician Dr. Rachele Keith MD PGY-1 Internal Medicine Attending Provider Attestation/Addendum I attest that I was physically present for the evaluation, physical examination, lab and imaging review of the patient with the residents. I discussed the case with the residents and agree with the findings and plans of care as documented above. At bedside today, patient states she is feeling better. Continues to have oxygen saturation around high 80s. Noted to have acidosis on ABG this morning, we will continue with BiPAP. Continues to be on antibiotics and steroid. Noted to have acidosis despite improvement in CO2 level. Also has MARYANN slowly improving. Has potassium going up to 5.4. We will obtain nephrology consult. Davida Jeffrey MD
[2025-02-03] MEDS: cefTRIAXone/D5w 1gm IV premix 1 GM/50 ML BAG IV (09:57)
--- NOTE | 2025-02-03 10:06 | ECHO_ITS ---
Transthoracic Echo Report Ht (in): 70 Wt (lb): 240 Exam Location: Echo Lab Status: Inpatient [place] Driver: Neal Do Indications: Procedure Performed: BP: 123 / 53 HR: 79 Technical Quality: Very technically difficult study MEASUREMENTS (Male / Female) Normal Values DOPPLER PV Peak Velocity 121.0 cm/s PV Peak Gradient 5.9 mmHg FINDINGS Left Ventricle The ejection fraction is visually estimated at 55 %. Unable to evaluate diastolic function due to technically difficult study. Right Ventricle The right ventricle not well visualized. Left Atrium Left atrium not well visualized. Right Atrium Right atrium is not well visualized. Atrial Septum The interatrial septum appears normal with no evidence of a shunt. Aorta The aorta is normal by two-dimensional, color flow and Doppler interrogation. Mitral Valve The mitral valve is not well visualized. Aortic Valve The aortic valve is not well visualized. Tricuspid Valve The tricuspid valve is not well visualized. Pulmonic Valve The pulmonic valve is not well visualized. There is no significant pulmonic valve regurgitation. Vessels The pulmonary artery appears normal. The inferior vena cava pulmonary and hepatic veins appear normal. Pericardium The pericardium is normal by two-dimensional imaging. There is no significant pericardial effusion. CONCLUSIONS Indication: SOB Standard PLAX , PSAX and Apical views could no be obtained. All the cardiac sturctures suboptimally visualized. The EF is visually estimated at 55 -60%. Unable to evaluate diastolic function due to technically difficult study. The RV not well visualized. Trace TRMarisel Rojas (Electronically Signed) Final Date: 03 February 2025 13:15
[2025-02-03 11:40] LABS: Cocci Serology, IgM Negative (Negative)
[2025-02-03 12:31] LABS: Base Excess, Venous 0 (-3-3); O2 Saturation, Venous 85 % (96-97); PCO2, Venous 43 mmHg (36-56); PO2, Venous 45 mmHg (15-58); pH, Venous 7.38 (7.33-7.66)
[2025-02-03 13:18] LABS: Alanine Aminotransferase 42 U/L (10-49); Albumin, Serum 3.6 gm/dL (3.4-4.8); Albumin/Globulin Ratio 1.3 (1.2-2.2); Alkaline Phosphatase 94 U/L (46-116); Anion Gap 11 (7-16); Aspartate Amino Transferase 56 U/L (0-34); BUN/Creatinine Ratio 16 Ratio (12-20); Bilirubin,Total 0.3 mg/dL (0.3-1.2); Blood Urea Nitrogen 25 mg/dL (9-23); Calcium 8.2 mg/dL (8.3-10.6); Calcium (Corrected) 8.5 mg/dL (8.5-10.1); Carbon Dioxide 21.9 mMol/L (20.0-31.0); Chloride 109 mMol/L (98-107); Creatinine (Component) 1.6 mg/dL (0.6-1.3); Estimated Creatinine Clearance 53.1 mL/min (>60); Globulin 2.7 gm/dL (2.3-3.5); Glucose 147 mg/dL (74-106); Osmolality,Calculated 290 (275-295); Potassium 5.2 mMol/L (3.4-5.1); Sodium 142 mMol/L (136-145); Total Protein 6.3 gm/dL (5.7-8.2); eGFR 46 See Note
--- NOTE | 2025-02-03 15:18 | PC.SS ---
This is 67-year-old, , single female who presented to the ED due to suffering from weakness. Patient appeared alert and oriented to self. Patient's thought process was organized but delayed in process. Patient reported that she lives with Sarah. She is independent with ADLs, no DME use. Patient is unknown of a PCP. Patient reported that Sarah can make all decisions on her behalf. SW attempted to contact Sarah for collateral information with no success. When medically clear, patient will return home.
[2025-02-03 19:19] LABS: Base Excess 1 (-3-3); HCO3 28 mEq/L (20-26); O2 Saturation 95 % (91-98); PCO2 58 mmHg (32.0-48.0); PO2 85 mmHg (83-108); pH, Arterial 7.29 (7.35-7.45)
[2025-02-03 19:20] LABS: Allen Test Performed/OK; Inspired Oxygen, FIO2 50 %; Puncture Site Right Radial
[2025-02-03] MEDS: ATORVASTATIN CALCIUM 20 MG TABLET PO (20:34)
[2025-02-04] VITALS (14 sets, daily range): BP systolic 124–157; BP diastolic 62–75; PULSE 66–95; RESP 10–23; TEMP 36–36.3; O2SAT 88–98; BMI 35.4
[2025-02-04] MEDS: ALBUTEROL/IPRATROPIUM (Duoneb) RT SOL 3 ML NEBU INH ×6 (02:49→22:33)
[2025-02-04] MEDS: guaiFENesin/DM TABLET 2 EACH PO ×2 (06:20→14:56)
[2025-02-04 06:34] LABS: Basophils # (Auto) 0.0 Thou/mm3 (0.0-0.2); Basophils % (Auto) 0 % (0-2.5); Eosinophils # (Auto) 0.0 Thou/mm3 (0.0-0.5); Eosinophils % (Auto) 0 % (0-10); Hematocrit 36.5 % (41.0-53.0); Hemoglobin 11.3 g/dL (13.5-16.0); Immature Granulocytes Auto 0.08 Thou/mm3 (0.00-0.00); Lymphocytes # (Auto) 0.2 Thou/mm3 (1.0-4.8); Lymphocytes % (Auto) 2 % (10-50); Mean Corpuscular HGB Conc 31.0 g/dl (31.0-37.0); Mean Corpuscular Hemoglobin 29.7 pg (25.0-35.0); Mean Corpuscular Volume 96 fL (80-100); Monocytes # (Auto) 0.3 Thou/mm3 (0.0-0.8); Monocytes % (Auto) 4 % (0-12); Neutrophils # (Auto) 8.1 Thou/mm3 (1.8-7.7); Neutrophils % (Auto) 93 % (37-80); Nucleated Red Blood Cell # 0.00 Thou/mm3 (0.00-0.00); Nucleated Red Blood Cell % 0 /100 WBC (0); Platelet Count 183 Thou/mm3 (140-440); RDW Standard Deviation 47.6 fL (35.1-43.9); Red Blood Count 3.80 Miln/mm3 (4.50-5.90); White Blood Count 8.6 Thou/mm3 (3.8-10.6)
[2025-02-04 06:49] LABS: Alanine Aminotransferase 37 U/L (10-49); Albumin, Serum 3.6 gm/dL (3.4-4.8); Albumin/Globulin Ratio 1.4 (1.2-2.2); Alkaline Phosphatase 88 U/L (46-116); Anion Gap 7 (7-16); Aspartate Amino Transferase 42 U/L (0-34); BUN/Creatinine Ratio 26 Ratio (12-20); Bilirubin,Total 0.3 mg/dL (0.3-1.2); Blood Urea Nitrogen 39 mg/dL (9-23); Calcium 8.2 mg/dL (8.3-10.6); Calcium (Corrected) 8.5 mg/dL (8.5-10.1); Carbon Dioxide 27.7 mMol/L (20.0-31.0); Chloride 107 mMol/L (98-107); Creatinine (Component) 1.5 mg/dL (0.6-1.3); Estimated Creatinine Clearance 57.5 mL/min (>60); Globulin 2.5 gm/dL (2.3-3.5); Glucose 170 mg/dL (74-106); Magnesium 2.4 mg/dL (1.6-2.6); Osmolality,Calculated 296 (275-295); Phosphorous 2.2 mg/dL (2.4-5.1); Potassium 5.4 mMol/L (3.4-5.1); Sodium 142 mMol/L (136-145); Total Protein 6.1 gm/dL (5.7-8.2); eGFR 50 See Note
--- NOTE | 2025-02-04 08:30 | XR_ITS ---
Examination: Renal sonography Renal Doppler arterial sonographic assessment of the kidneys Date and time: February 04, 2025 12:28 PM INDICATIONS: Acute renal insufficiency on laboratory examination 2 days ago, history chronic kidney disease and history bladder cancer TECHNIQUE AND FINDINGS: Grayscale sonographic images kidneys Assessment peak systolic arterial velocities calculation resistive indices and renal aortic ratios Bowel gas prevents diagnostic assessment right renal arterial system No elevation peak systolic velocities left kidney Right kidney 8.8 cm, left kidney 10.5 cm IMPRESSION: Nondiagnostic assessment right kidney Negative for left renal artery stenosis
--- NOTE | 2025-02-04 08:41 | PD.RESCONSUL ---
HPI Data of Consult Consult date: 02/04/25 Requesting Physician: Davida Jeffrey MD Admitting Provider: Davida Jeffrey MD Attending Provider: Davida Jeffrey MD Primary Care Provider: Radha Davila MD Consult Narrative Reason for consult: MARYANN on CKD History of present illness: Mr. Phelps is a 69 years old male with past medical history of COPD on home oxygen, hypertension, hypercholesterolemia, bladder cancer status post cystectomy and ileal conduit , CKD III who presented to the ED with complaint of shortness of breath. At the time of exam, patient is already on BiPAP and not able to provide detailed history. Stated that he has been having worsening cough with sputum production along with shortness of breath. He also said yes for febrile episodes at home. Denies any chest pain, headache, nausea vomiting. In the ED, initial vitals show blood pressure of 189/61, pulse 110, respiratory rate 21, temperature 102.2 ?F and oxygen saturation of 89% on 15 L oxy mask. Patient was then started on BiPAP, currently saturating well. Lab results are significant for creatinine of 1.6, baseline appears to be around 1.2-1.3. Troponin elevated at 0.067, up trended to 0.090. Urinalysis showed 2+ protein and 11 WBCs along with rare bacteria. Patient denied any urinary symptoms. Chest x-ray was obtained, which showed right base pneumonia and suspicion for pulmonary artery hypertension. EKG showed sinus rhythm, right bundle branch block without ST elevation. Today patient was seen and examined. Patients vitals have been stable with oxygen saturation at 92%l. Patient states that he does not have any new complaints or concerns, but continues to feel a little weak overall. Endorsed having a little shortness of breath that was feeling better currently. Patient denies any fever, chest pain, abdominal pain. Consulted for MARYANN on CKD cc:: cc: Davida Jeffrey MD Review of Systems Review of Systems Narrative Review of Systems: CONST: Negative for fever, body aches and chills. HENT: Negative for neck pain/stiffness, headache, congestion, sore throat, swelling. EYES: Negative for discharge/pain or vision changes. RESP: Endorses mild (improving) shortness of breath. CV: Negative chest pain, palpitations. ABD: Negative pain, nausea, vomiting. : Negative increase frequency, dysuria, blood in urine or stool. MUSC: Negative for muscle aches, edema. SKIN: Negative rash, lesions/sores. NEURO: Negative headache, dizziness, weakness. Past Medical History Past Medical History CARDIAC: Positive Cardiac Disorders, Hypercholesterolemia and Hypertension RESPIRATORY: Positive Chronic Obstructive Pulmonary Disease (COPD), Bronchitis and Pneumonia GASTROINTESTINAL: Positive Gastrointestinal Disorders and Obesity GENITOURINARY: Positive Genitourinary Disorders (had bladder removed, has ileoconduct) and Renal Disease MUSCULOSKELETAL: Positive Arthritis and Fractures (right arm) ENT: Positive Cataracts (an) OTHER HISTORY: Positive Hospitalization, Chemotherapy and Cancer (bladder cancer) Surgical History SURGICAL: Positive Tonsillectomy and Transurethral Resection Social History SMOKING STATUS: Former smoker SUBSTANCE USE: does not use ALCOHOL: Never Exam Vital Signs Temp Pulse Resp BP Pulse Ox O2 Del Method O2 Flow Rate 97.3 F 82 18 124/67 92 L BiPAP 12 02/04/25 04:00 02/04/25 06:29 02/04/25 06:29 02/04/25 04:00 02/04/25 06:29 02/04/25 04:00 02/04/25 04:00 FiO2 50 02/04/25 04:00 Narrative Exam GENERAL APPEARANCE: ?AxOx4, generally well-appearing, no acute distress. HEENT: ?NC, AT. MMM. EOMI, clear conjunctiva. NECK: ?Supple without lymphadenopathy.? No stiffness or restricted ROM. HEART:? Normal rate and regular rhythm, no m/r/g LUNGS:? CTAB, moving air well. No crackles or wheezes are heard. ABDOMEN: ?Soft, nontender, nondistended ++ ileal conduit BACK: No CVAT, no obvious deformity. EXTREMITIES: ?Without cyanosis, clubbing or edema. NEUROLOGICAL: ?Grossly nonfocal. Alert and oriented, moving all 4 extremities. CN not formally tested but appear grossly intact. Skin: ?Warm and dry without any rash. Results Labs 02/04/25 05:24 02/05/25 05:07 Labs: Short CBC 02/04/25 Range/Units 05:24 WBC 8.6 D (3.8-10.6) Thou/mm3 Hgb 11.3 L (13.5-16.0) g/dL Hct 36.5 L (41.0-53.0) % Plt Count 183 D (140-440) Thou/mm3 BMP 02/03/25 02/04/25 12:16 05:24 Sodium 142 142 Potassium 5.2 H 5.4 H Chloride 109 H 107 Carbon Dioxide 21.9 27.7 BUN 25 H 39 H Creatinine 1.6 H 1.5 H Glucose 147 H 170 H Calcium 8.2 L 8.2 L Liver Function 02/03/25 02/04/25 Range/Units 12:16 05:24 Total Bilirubin 0.3 0.3 (0.3-1.2) mg/dL AST 56 H 42 H (0-34) U/L ALT 42 37 (10-49) U/L Alkaline Phosphatase 94 88 (46-116) U/L Albumin 3.6 3.6 (3.4-4.8) gm/dL ABG Interpretation ABG results: 02/02/25 02/02/25 02/03/25 09:25 16:35 08:03 ABG pH 7.21 L 7.21 L 7.25 L ABG pCO2 75 H* 73 H* 64 H ABG pO2 77 L 68 L 61 L ABG HCO3 30 H 30 H 28 H ABG O2 Saturation 92 92 91 ABG Base Excess 0 0 0 VBG pH VBG pCO2 VBG pO2 VBG Base Excess 02/03/25 02/03/25 12:16 19:12 ABG pH 7.29 L ABG pCO2 58 H ABG pO2 85 D ABG HCO3 28 H ABG O2 Saturation 95 ABG Base Excess 1 VBG pH 7.38 VBG pCO2 43 VBG pO2 45 VBG Base Excess 0 Quality Measures Quality Measures sepsis Current suspected stage: sepsis Possible source: pulmonary Blood cultures ordered: yes Antibiotic ordered: Yes Advance care planning discussed with:: patient Medications Home Medications and Allergies Home Medications ?Medication ?Instructions ?Recorded ?Confirmed ?Type albuterol sulfate 90 mcg/actuation 2 puff inhalation Q4H PRN sob #0 07/09/14 02/03/25 History aerosol inhaler (ProAir HFA) inhalations tiotropium bromide 18 mcg capsule 1 cap inhalation QDAY #0 puffs 07/09/14 02/03/25 History with inhalation device (Spiriva with HandiHaler) amlodipine 10 mg tablet 10 mg PO HS 10/29/22 02/03/25 History fluticasone 500 mcg-salmeterol 50 1 inh inhalation Q12H 10/29/22 02/03/25 History mcg/dose blistr powdr for inhalation (Advair Diskus) ipratropium 0.5 mg-albuterol 3 mg 3 ml inhalation Q6H PRN Dyspnea 10/29/22 02/03/25 History (2.5 mg base)/3 mL nebulization soln valsartan 80 mg tablet 80 mg PO DAILY 02/03/25 02/03/25 History Allergies Allergy/AdvReac Type Severity Reaction Status Date / Time heparin Allergy Unknown Verified 04/28/23 17:15 Visit Medications Acetaminophen (Acetaminophen 325 Mg Tablet) 650 mg PO Q6H PRN PRN Reason: Fever >101.5 Stop: 03/04/25 14:36 Acetaminophen (Acetaminophen 325 Mg Tablet) 650 mg PO Q6H PRN PRN Reason: PAIN SCALE 1-3 (mild Stop: 03/04/25 14:36 Hydrocodone Bitart/Acetaminophen (Hydrocodone/Apap 10/325 Tab) 1 tab PO Q6H PRN PRN Reason: PAIN SCALE 4-6 (Moderate Stop: 02/07/25 14:36 Albuterol/Ipratropium (Albuterol/Ipratropium (Duoneb) Rt Kacy 3 Ml Nebu) 3 ml INH Q4HRRT BLAISE Stop: 03/04/25 14:59 Last Admin: 02/04/25 06:29 Dose: 3 ml Amlodipine Besylate (Amlodipine Besylate 5 Mg Tablet) 10 mg PO QDAY BLAISE Stop: 03/05/25 08:59 Last Admin: 02/03/25 08:45 Dose: 10 mg Atorvastatin Calcium (Atorvastatin Calcium 20 Mg Tablet) 20 mg PO HS BLAISE Stop: 03/04/25 20:59 Last Admin: 02/03/25 20:34 Dose: 20 mg Enoxaparin Sodium (Enoxaparin Sod Inj 40 Mg/0.4 Ml Syringe) 40 mg SC QDAY BLAISE Stop: 02/17/25 08:59 Last Admin: 02/03/25 08:45 Dose: 40 mg Guaifenesin/Dextromethorphan (Guaifenesin/Dm Tablet) 2 each PO Q8H BLAISE Stop: 03/04/25 14:59 Last Admin: 02/04/25 06:20 Dose: 2 each Ceftriaxone Sodium/Dextrose (Rocephin/D5w 1gm Iv Premix) 1 gm in 50 mls @ 100 mls/hr IV QDAY BLAISE Stop: 02/10/25 08:59 Last Admin: 02/03/25 09:57 Dose: 100 mls/hr Doxycycline Hyclate 100 mg/ (Sodium Chloride) 100 mls @ 100 mls/hr IV BID BLAISE Stop: 02/09/25 20:59 Last Admin: 02/03/25 20:32 Dose: 100 mls/hr Methylprednisolone Sodium Succinate (Methylprednisolone Sod Succ 40 Mg Vial) 40 mg IVP Q12HR BLAISE Stop: 02/10/25 20:59 Last Admin: 02/03/25 20:33 Dose: 40 mg Ondansetron HCl (Ondansetron Inj 2 Mg/Ml Inj 2 Ml) 4 mg IVP Q6H PRN; Protocol PRN Reason: NAUSEA OR VOMITING Stop: 03/04/25 14:36 Discontinued Medications Albuterol (Albuterol Rt 2.5 Mg/3 Ml Nebu) 5 mg INH X1 ONE Stop: 02/02/25 09:20 Last Admin: 02/02/25 09:52 Dose: 5 mg Albuterol/Ipratropium (Albuterol/Ipratropium (Duoneb) Rt Kacy 3 Ml Nebu) 3 ml INH X1 ONE Stop: 02/03/25 07:43 Last Admin: 02/03/25 08:19 Dose: Not Given Calcium Carbonate (Calcium Carbonate 600 Mg Tablet) 600 mg PO QDAY ONE Stop: 02/04/25 08:05 Calcium Gluconate (Calcium Gluconate 10% Inj 1 Gm/10 Ml Vial) 1 gm IV X1 ONE Stop: 02/03/25 07:37 Last Admin: 02/03/25 08:45 Dose: 1 gm Furosemide (Furosemide Inj 10 Mg/Ml 4ml Vial) 80 mg IVP X1 ONE Stop: 02/02/25 09:13 Last Admin: 02/02/25 09:16 Dose: Not Given Sodium Chloride (Ns) 500 mls @ 999 mls/hr IV .Q31M ONE Stop: 02/02/25 09:49 Last Infusion: 02/02/25 12:22 Dose: Infused Ceftriaxone Sodium 2 gm/ (Sodium Chloride) 50 mls @ 100 mls/hr IV X1 ONE Stop: 02/02/25 09:49 Last Infusion: 02/02/25 12:22 Dose: Infused Azithromycin 500 mg/ Sodium (Chloride) 250 mls @ 250 mls/hr IV X1 ONE Stop: 02/02/25 10:20 Last Infusion: 02/02/25 11:00 Dose: Infused Sodium Chloride (Ns) 1,000 mls @ 75 mls/hr IV .[id number] [facility] Stop: 03/04/25 14:44 Last Admin: 02/03/25 18:33 Dose: Not Given Magnesium Sulfate (Magnesium Sulfate Ivpb) 4 gm in 50 mls @ 12.5 mls/hr IV X1 ONE Stop: 02/03/25 11:35 Last Admin: 02/03/25 08:44 Dose: 12.5 mls/hr Methylprednisolone Sodium Succinate (Methylprednisolone Sod Succ 62.5 Mg/Ml 2ml Vial) 125 mg IVP X1 ONE Stop: 02/02/25 09:20 Last Admin: 02/02/25 09:40 Dose: 125 mg Methylprednisolone Sodium Succinate (Methylprednisolone Sod Succ 40 Mg Vial) 40 mg IVP QDAY [facility] Stop: 02/10/25 08:59 Last Admin: 02/03/25 08:45 Dose: 40 mg Sodium Polystyrene Sulfonate (Sod Polystyrene Sulfon Susp 15 Gm/60 Ml Btl) 30 gm PO X1 ONE Stop: 02/04/25 08:01 Sodium Polystyrene Sulfonate (Sod Polystyrene Sulfon Susp 15 Gm/60 Ml Btl) 15 gm PO X1 ONE Stop: 02/04/25 08:06 Assessment & Plan Plan Patient is a 69 years old male with past medical history of COPD on home oxygen, hypertension, hypercholesterolemia, bladder cancer status post cystectomy and ileal conduit who presented to the ED with complaint of shortness of breath. Found to be septic, acute on chronic hypoxic respiratory failure needing BiPAP. After examination of the patient and review of the clinical data I feel that this patient needs admission to the hospital for further treatment/evaluation. Nephrology consulted for management of MARYANN on CKD. #Acute kidney injury on CKD Cr 1.6 on admission (baseline Cr 1.2-1.3). BUN/creatinine of 23/1.6 currently. Suspect pre-renal etiology due to dehydration. Patient given 500 cc bolus initially, currently stable. No contrast given or offending medications Follow up Renal US Follow up Strict I/Os, monitor UOP Renal dose meds, avoid nephrotoxins Follow up urine electrolytes #Hyperkalemia Likely multifactorial. Patient came in with K 4.9 (02/02) and potassium has mildly elevated and continues to be elevated at 5.4. -Gave Kayexalate 15 mg po x1 -Monitor levels and clinical status #Acute on chronic hypoxic hypercapnic respiratory failure//respiratory acidosis #COPD exacerbation #Community-acquired pneumonia #Sepsis, likely secondary to pneumonia #Electrolyte abnormalities #Elevated troponin ? probably demand ischemia. Patient denies any chest pains. #Hypertension #Hyperlipidemia #Urostomy care continue management by primary team Plan of care discussed with attending physician Dr. Dru Maguire MD PGY-1 Attending Provider Attestation/Addendum Patient seen and examined with resident physician Dr. Maguire. Note reviewed, agree with findings and recommendations with changes made. Patient well-known to me from my CKD clinic. Baseline creatinine 1.3-1.4. Admitted with COPD exacerbation and respiratory acidosis. Noted metabolic alkalosis from a respiratory acidosis compensation. Continue with BiPAP. Will follow along with primary team. Thank you Davida for allowing me to participate in the care of Mr. Bejarano
[2025-02-04] MEDS: ENOXAPARIN SOD INJ 40 MG/0.4 ML SYRINGE SC (09:16)
[2025-02-04] MEDS: DOXYCYCLINE INJ 100 MG in SODIUM CHLORIDE 0.9% (POP) 100 ML IV (09:16)
[2025-02-04] MEDS: cefTRIAXone/D5w 1gm IV premix 1 GM/50 ML BAG IV (09:16)
[2025-02-04] MEDS: CALCIUM CARBONATE 600 MG TABLET PO (09:20)
[2025-02-04] MEDS: SOD POLYSTYRENE SULFON SUSP 15 GM/60 ML BTL 30 GM PO (09:20)
[2025-02-04] MEDS: SOD POLYSTYRENE SULFON SUSP 15 GM/60 ML BTL PO (09:20)
--- NOTE | 2025-02-04 11:47 | PC.SS ---
Update: Patient utilizing BI-PAP. Patient in possession of MARYANN.
[2025-02-04 13:18] LABS: Cocci Serology, IgG Negative (Negative)
[2025-02-04 14:55] LABS: Potassium 5.0 mMol/L (3.4-5.1)
--- NOTE | 2025-02-04 15:45 | PC.SS ---
Rounding Note: Possibility of Echo repeat. Cardiology recommendations are pending. Patient is no longer on BI-PAP.
--- NOTE | 2025-02-04 17:02 | ESPR_ITS ---
<Statement entered by Robert Bearden MD - 02/04/25 17:19> Patient was seen and examined at the bedside. No acute overnight events reported. Patient has been taking off BiPAP and being noncompliant he was explained that he had been keeping him to improve his hypercapnic respiratory failure. Nephrology recommended to continue with BiPAP as he is appropriately compensating respiratory acidosis with metabolic alkalosis. Creatinine remains same. Renal duplex was unremarkable. Will continue with BiPAP and continue with antibiotics. All labs and orders were reviewed. I discussed and supervised with the internet media planner physician who took care of this patient. I personally saw and examined the patient. I agree with most of the assessment and plan. Disclaimer: Despite multiple revisions, due to the dictation software being used, the document bellow may not be free of grammatical errors including phonetic/typographic errors. However, this does not deter from our commitment to providing health care in the patient's best interest in mind. Plan of care discussed with attending Physician Dr. Rachele Bearden MD PGY-3 Documentation for date of: 02/04/25 Subjective Subjective Interval history: Patient reports continued improvement in breathing. Denies shortness of breath or chest pain. He still dislikes the BiPAP machine. Cough and sputum production have improved. No fever, chills, nausea, vomiting, or dizziness. Denies abdominal pain. Tolerating diet well. Exam Vital Signs Temp Pulse Resp BP Pulse Ox O2 Del Method O2 Flow Rate 97.4 F 84 18 143/74 H 91 L BiPAP 12 02/04/25 12:00 02/04/25 15:25 02/04/25 15:25 02/04/25 12:00 02/04/25 15:25 02/04/25 12:00 02/04/25 04:00 FiO2 50 02/04/25 04:00 Narrative Exam General: Patient is AAOx4, currently on Oxygen mask, appears on mild respiratory distress HEENT: normocephalic/atraumatic, vitreous and conjunctival injection, no icterus, patent nares, dry mucosal membranes Lungs: Bilateral wheezing and decreased air entry CVS: S1, S2, RRR, no MGR Abd: Soft, nontender, urostomy bag noted in the RLQ EXT: Trace pedal edema Neuro: Moving all his limbs spontaneously, cranial nerves grossly intact, no focal neurological deficit Objective Labs 02/06/25 05:14 02/06/25 05:14 Labs: Laboratory Results - last 24 hr 02/03/25 02/03/25 02/04/25 00:43 19:12 05:24 WBC 8.6 D RBC 3.80 L Hgb 11.3 L Hct 36.5 L MCV 96 MCH 29.7 MCHC 31.0 RDW Std Deviation 47.6 H Plt Count 183 D Neut % (Auto) 93 H Lymph % (Auto) 2 L Gaston % (Auto) 4 Eos % (Auto) 0 Baso % (Auto) 0 Neut # (Auto) 8.1 H Lymph # (Auto) 0.2 L Gaston # (Auto) 0.3 Eos # (Auto) 0.0 Baso # (Auto) 0.0 Immature Gran # (Auto) 0.08 H Absolute Nucleated RBC 0.00 Immature Gran % 1 H Nucleated RBC % 0 Puncture Site Right Radial ABG pH 7.29 L ABG pCO2 58 H ABG pO2 85 D ABG HCO3 28 H ABG O2 Saturation 95 ABG Base Excess 1 FiO2 50 Sodium 142 Potassium 5.4 H Chloride 107 Carbon Dioxide 27.7 Anion Gap 7 BUN 39 H Creatinine 1.5 H Estim Creat Clear Calc 57.5 L eGFR 50 L BUN/Creatinine Ratio 26 H Glucose 170 H Calculated Osmolality 296 H Calcium 8.2 L Corrected Calcium 8.5 Phosphorus 2.2 L Magnesium 2.4 Total Bilirubin 0.3 AST 42 H ALT 37 Alkaline Phosphatase 88 Total Protein 6.1 Albumin 3.6 Globulin 2.5 Albumin/Globulin Ratio 1.4 Coccidioides IgG Ab Negative 02/04/25 14:30 WBC RBC Hgb Hct MCV MCH MCHC RDW Std Deviation Plt Count Neut % (Auto) Lymph % (Auto) Gaston % (Auto) Eos % (Auto) Baso % (Auto) Neut # (Auto) Lymph # (Auto) Gaston # (Auto) Eos # (Auto) Baso # (Auto) Immature Gran # (Auto) Absolute Nucleated RBC Immature Gran % Nucleated RBC % Puncture Site ABG pH ABG pCO2 ABG pO2 ABG HCO3 ABG O2 Saturation ABG Base Excess FiO2 Sodium Potassium 5.0 Chloride Carbon Dioxide Anion Gap BUN Creatinine Estim Creat Clear Calc eGFR BUN/Creatinine Ratio Glucose Calculated Osmolality Calcium Corrected Calcium Phosphorus Magnesium Total Bilirubin AST ALT Alkaline Phosphatase Total Protein Albumin Globulin Albumin/Globulin Ratio Coccidioides IgG Ab ABG Interpretation ABG results: 02/02/25 02/02/25 02/03/25 09:25 16:35 08:03 ABG pH 7.21 L 7.21 L 7.25 L ABG pCO2 75 H* 73 H* 64 H ABG pO2 77 L 68 L 61 L ABG HCO3 30 H 30 H 28 H ABG O2 Saturation 92 92 91 ABG Base Excess 0 0 0 VBG pH VBG pCO2 VBG pO2 VBG Base Excess 02/03/25 02/03/25 12:16 19:12 ABG pH 7.29 L ABG pCO2 58 H ABG pO2 85 D ABG HCO3 28 H ABG O2 Saturation 95 ABG Base Excess 1 VBG pH 7.38 VBG pCO2 43 VBG pO2 45 VBG Base Excess 0 Quality Measures Quality Measures sepsis Current suspected stage: ruled out Possible source: pulmonary Blood cultures ordered: yes Antibiotic ordered: Yes Advance care planning discussed with:: patient Assessment & Plan Assessment Current Active Medications: Generic Name Dose Route Start Last Admin Trade Name Freq PRN Reason Stop Dose Admin Acetaminophen 650 mg 02/02/25 14:37 Acetaminophen 325 Mg Tablet PO 03/04/25 14:36 Q6H PRN Fever >101.5 Acetaminophen 650 mg 02/02/25 14:37 Acetaminophen 325 Mg Tablet PO 03/04/25 14:36 Q6H PRN PAIN SCALE 1-3 (mild Hydrocodone Bitart/Acetaminophen 1 tab 02/02/25 14:37 Hydrocodone/Apap 10/325 Tab PO 02/07/25 14:36 Q6H PRN PAIN SCALE 4-6 (Moderate Albuterol/Ipratropium 3 ml 02/02/25 15:00 02/04/25 15:25 Albuterol/Ipratropium (Duoneb) Rt Kacy 3 Ml Nebu INH 03/04/25 14:59 3 ml Q4HRRT BLAISE Administration Amlodipine Besylate 10 mg 02/03/25 09:00 02/04/25 09:24 Amlodipine Besylate 5 Mg Tablet PO 03/05/25 08:59 10 mg QDAY BLAISE Administration Atorvastatin Calcium 20 mg 02/02/25 21:00 02/03/25 20:34 Atorvastatin Calcium 20 Mg Tablet PO 03/04/25 20:59 20 mg HS BLAISE Administration Benzonatate 200 mg 02/04/25 11:30 Benzonatate 100 Mg Capsule PO 03/06/25 11:29 Q8HR PRN COUGH Protocol Doxycycline Hyclate 100 mg 02/04/25 21:00 Doxycycline 100 Mg Tablet PO 02/11/25 20:59 BID BLAISE Protocol Enoxaparin Sodium 40 mg 02/03/25 09:00 02/04/25 09:16 Enoxaparin Sod Inj 40 Mg/0.4 Ml Syringe SC 02/17/25 08:59 40 mg QDAY BLAISE Administration Guaifenesin/Dextromethorphan 2 each 02/02/25 15:00 02/04/25 14:56 Guaifenesin/Dm Tablet PO 03/04/25 14:59 2 each Q8H BLAISE Administration Ceftriaxone Sodium/Dextrose 1 gm in 50 mls @ 100 mls/hr 02/03/25 09:00 02/04/25 09:16 Rocephin/D5w 1gm Iv Premix IV 02/10/25 08:59 100 mls/hr QDAY BLAISE Administration Methylprednisolone Sodium Succinate 40 mg 02/03/25 21:00 02/04/25 09:20 Methylprednisolone Sod Succ 40 Mg Vial IVP 02/10/25 20:59 40 mg Q12HR BLAISE Administration Ondansetron HCl 4 mg 02/02/25 14:37 Ondansetron Inj 2 Mg/Ml Inj 2 Ml IVP 03/04/25 14:36 Q6H PRN NAUSEA OR VOMITING Protocol Plan 69M with COPD on home O2, HTN, HLD, s/p cystectomy with ileal conduit, admitted for acute on chronic hypoxic hypercapnic respiratory failure and sepsis secondary to CAP. #Acute on chronic hypoxic hypercapnic respiratory failure Previously on BiPAP due to hypercapnia, tolerated well with this likely. BiPAP restarted overnight for rising CO2, now discontinued again. Spoke with Dr. Gonsales, who agreed this represents compensated acute respiratory acidosis and recommended continued monitoring Plan: * Monitor respiratory status closely * Restart BiPAP if blood gases worsen * Maintain on oxygen mask as tolerated * Repeat ABG/VBG if worsening symptoms * Continue DuoNebs, guaifenesin * Tolerating diet --> continue PO #COPD exacerbation Likely triggered by infection. Improving clinically. Plan: * Continue methylprednisolone * Continue nebulizers and mucolytics * Tessalon given for cough #Community-acquired pneumonia Initial CXR with right base infiltrate. Now afebrile, improved sputum clearance. Plan: * Continue IV ceftriaxone + doxycycline * Monitor WBC, consider CXR in 48?72 hrs if needed #Sepsis, likely secondary to pneumonia Met SIRS criteria on admission, now improving clinically. Plan: * Continue antibiotics * Monitor vitals, lactate (was WNL), and perfusion * Strict I/Os #MARYANN on CKD Creatinine 1.6 on admission (baseline creatinine 1.2-1.3), now improved to 1.5 Nephrology consulted Plan: * Hold nephrotoxins * follow-up renal ultrasound * Monitor renal function daily * IV fluids as tolerated #Electrolyte abnormalities Potassium 5.4 (likely multifactorial) post Kayexalate improved to 5.0 Magnesium 1.6, Calcium 7.8 Plan: * Magnesium + calcium repleted * Continue to monitor potassium ? no signs of EKG changes * Given 15 mg Kayexalate for hyperkalemia * Monitor lytes qAM #Elevated troponin ? likely Type II NSTEMI No chest pain. Troponin trended up mildly (0.067 --> 0.090-->0.100-->0.059), stable EKG. Peak 0.1 now downtrending Plan: * Discontinued troponin trend. * Monitor symptoms * No anticoag needed beyond DVT ppx #Hypertension Stable, no urgent issues Plan: * Continue amlodipine #Hyperlipidemia Plan: * Continue atorvastatin #Urostomy care Bag not changed in over a week Plan: * Request WOCN nurse to change urostomy bag * Monitor for skin breakdown, signs of UTI Health Maintenance: * Code Status: Full * Diet: Cardiac, patient tolerating * Fluids: Maintenance IVFs discontinued; PO hydration adequate * DVT Prophylaxis: Continue enoxaparin * Disposition: Telemetry, continue monitoring respiratory status and electrolytes ----- Plan discussed with attending physician Dr. Jeffrey and senior resident Dr. Monisha Keith MD PGY-1 Internal Medicine Attending Provider Attestation/Addendum I attest that I was physically present for the evaluation, physical examination, lab and imaging review of the patient with the residents. I discussed the case with the residents and agree with the findings and plans of care as documented above. Davida Jeffrey MD
[2025-02-04] MEDS: DOXYCYCLINE 100 MG TABLET PO (20:46)
[2025-02-04] MEDS: ATORVASTATIN CALCIUM 20 MG TABLET PO (20:46)
[2025-02-04 23:14] LABS: Base Excess 4 (-3-3); HCO3 31 mEq/L (20-26); Inspired Oxygen, FIO2 50 %; O2 Saturation 90 % (91-98); PCO2 60 mmHg (32.0-48.0); PO2 63 mmHg (83-108); pH, Arterial 7.32 (7.35-7.45)
[2025-02-04 23:16] LABS: Allen Test Performed/OK; Puncture Site Right Radial
[2025-02-05] VITALS (15 sets, daily range): BP systolic 134–169; BP diastolic 69–87; PULSE 64–101; RESP 10–28; TEMP 36.1–37.2; O2SAT 88–99; BMI 35.3
[2025-02-05] MEDS: guaiFENesin/DM TABLET 2 EACH PO ×4 (00:30→23:55)
[2025-02-05] MEDS: ALBUTEROL/IPRATROPIUM (Duoneb) RT SOL 3 ML NEBU INH ×6 (02:34→22:26)
[2025-02-05 05:45] LABS: Basophils # (Auto) 0.0 Thou/mm3 (0.0-0.2); Basophils % (Auto) 0 % (0-2.5); Eosinophils # (Auto) 0.0 Thou/mm3 (0.0-0.5); Eosinophils % (Auto) 0 % (0-10); Hematocrit 37.7 % (41.0-53.0); Hemoglobin 12.0 g/dL (13.5-16.0); Immature Granulocytes Auto 0.12 Thou/mm3 (0.00-0.00); Lymphocytes # (Auto) 0.2 Thou/mm3 (1.0-4.8); Lymphocytes % (Auto) 2 % (10-50); Mean Corpuscular HGB Conc 31.8 g/dl (31.0-37.0); Mean Corpuscular Hemoglobin 30.5 pg (25.0-35.0); Mean Corpuscular Volume 96 fL (80-100); Monocytes # (Auto) 0.3 Thou/mm3 (0.0-0.8); Monocytes % (Auto) 4 % (0-12); Neutrophils # (Auto) 8.1 Thou/mm3 (1.8-7.7); Neutrophils % (Auto) 93 % (37-80); Nucleated Red Blood Cell # 0.00 Thou/mm3 (0.00-0.00); Nucleated Red Blood Cell % 0 /100 WBC (0); Platelet Count 198 Thou/mm3 (140-440); RDW Standard Deviation 48.6 fL (35.1-43.9); Red Blood Count 3.93 Miln/mm3 (4.50-5.90); White Blood Count 8.7 Thou/mm3 (3.8-10.6)
[2025-02-05 06:18] LABS: Alanine Aminotransferase 72 U/L (10-49); Albumin, Serum 3.7 gm/dL (3.4-4.8); Albumin/Globulin Ratio 1.4 (1.2-2.2); Alkaline Phosphatase 93 U/L (46-116); Anion Gap 7 (7-16); Aspartate Amino Transferase 64 U/L (0-34); BUN/Creatinine Ratio 24 Ratio (12-20); Bilirubin,Total 0.4 mg/dL (0.3-1.2); Blood Urea Nitrogen 33 mg/dL (9-23); Calcium 8.2 mg/dL (8.3-10.6); Calcium (Corrected) 8.4 mg/dL (8.5-10.1); Carbon Dioxide 28.6 mMol/L (20.0-31.0); Chloride 109 mMol/L (98-107); Creatinine (Component) 1.4 mg/dL (0.6-1.3); Estimated Creatinine Clearance 61.6 mL/min (>60); Globulin 2.6 gm/dL (2.3-3.5); Glucose 182 mg/dL (74-106); Magnesium 2.3 mg/dL (1.6-2.6); Osmolality,Calculated 300 (275-295); Phosphorous 2.6 mg/dL (2.4-5.1); Potassium 5.2 mMol/L (3.4-5.1); Sodium 145 mMol/L (136-145); Total Protein 6.3 gm/dL (5.7-8.2); eGFR 54 See Note
--- NOTE | 2025-02-05 09:05 | PD.RESPRO ---
Documentation for date of: 02/05/25 Subjective Subjective Interval history: Mr. Phelps is a 69 years old male with past medical history of COPD on home oxygen, hypertension, hypercholesterolemia, bladder cancer status post cystectomy and ileal conduit , CKD III who presented to the ED with complaint of shortness of breath. At the time of exam, patient is already on BiPAP and not able to provide detailed history. Stated that he has been having worsening cough with sputum production along with shortness of breath. He also said yes for febrile episodes at home. Denies any chest pain, headache, nausea vomiting. 02/04/2025 Patient was seen and examined. Patients vitals have been stable with oxygen saturation at 92%l. Patient states that he does not have any new complaints or concerns, but continues to feel a little weak overall. Endorsed having a little shortness of breath that was feeling better currently. Patient denies any fever, chest pain, abdominal pain. Consulted for MARYANN on CKD 02/05/2025 Patient did not have any acute overnight events. Patient is now back on continuous bipap usage. Regarding patient's vital signs, his bp is elevated with systolic 150s 160s; patient is tachypneic to mid/upper 20s.Patient was seen and examined. Patient does not endorse any new complaints or concerns. Patient endorses some improved breathing. Patient denies fever, chest pain, abdominal pain. Patients creatinine continues to improve, currently 1.4 (baseline 1.2/1.3). Exam Vital Signs Temp Pulse Resp BP Pulse Ox O2 Del Method O2 Flow Rate 97.0 F 101 H 28 H 156/87 H 91 L BiPAP 4 02/05/25 08:00 02/05/25 08:00 02/05/25 08:00 02/05/25 08:00 02/05/25 08:00 02/05/25 08:00 02/05/25 08:00 FiO2 50 02/05/25 08:00 Narrative Exam GENERAL APPEARANCE: ?AxOx4, generally well-appearing, tachypneic HEENT: ?NC, AT. MMM. EOMI, clear conjunctiva. NECK: ?Supple without lymphadenopathy.? No stiffness or restricted ROM. HEART:? Normal rate and regular rhythm, no m/r/g LUNGS:? mild wheezes bilaterally ABDOMEN: ?Soft, nontender, nondistended ++ ileal conduit BACK: No CVAT, no obvious deformity. EXTREMITIES: ?Without cyanosis, clubbing or edema. NEUROLOGICAL: ?Grossly nonfocal. Alert and oriented, moving all 4 extremities. CN not formally tested but appear grossly intact. Skin: ?Warm and dry without any rash. Objective Labs 02/05/25 05:07 02/05/25 05:07 Labs: Laboratory Results - last 24 hr 02/03/25 02/04/25 02/04/25 00:43 14:30 22:53 WBC RBC Hgb Hct MCV MCH MCHC RDW Std Deviation Plt Count Neut % (Auto) Lymph % (Auto) [place] % (Auto) Eos % (Auto) Baso % (Auto) Neut # (Auto) Lymph # (Auto) [place] # (Auto) Eos # (Auto) Baso # (Auto) Immature Gran # (Auto) Absolute Nucleated RBC Immature Gran % Nucleated RBC % Puncture Site Right Radial ABG pH 7.32 L ABG pCO2 60 H ABG pO2 63 L D ABG HCO3 31 H ABG O2 Saturation 90 L ABG Base Excess 4 H FiO2 50 Sodium Potassium 5.0 Chloride Carbon Dioxide Anion Gap BUN Creatinine Estim Creat Clear Calc eGFR BUN/Creatinine Ratio Glucose Calculated Osmolality Calcium Corrected Calcium Phosphorus Magnesium Total Bilirubin AST ALT Alkaline Phosphatase Total Protein Albumin Globulin Albumin/Globulin Ratio Coccidioides IgG Ab Negative 02/05/25 05:07 WBC 8.7 RBC 3.93 L Hgb 12.0 L Hct 37.7 L MCV 96 MCH 30.5 MCHC 31.8 RDW Std Deviation 48.6 H Plt Count 198 Neut % (Auto) 93 H Lymph % (Auto) 2 L [place] % (Auto) 4 Eos % (Auto) 0 Baso % (Auto) 0 Neut # (Auto) 8.1 H Lymph # (Auto) 0.2 L [place] # (Auto) 0.3 Eos # (Auto) 0.0 Baso # (Auto) 0.0 Immature Gran # (Auto) 0.12 H Absolute Nucleated RBC 0.00 Immature Gran % 1 H Nucleated RBC % 0 Puncture Site ABG pH ABG pCO2 ABG pO2 ABG HCO3 ABG O2 Saturation ABG Base Excess FiO2 Sodium 145 Potassium 5.2 H Chloride 109 H Carbon Dioxide 28.6 Anion Gap 7 BUN 33 H Creatinine 1.4 H Estim Creat Clear Calc 61.6 eGFR 54 L BUN/Creatinine Ratio 24 H Glucose 182 H Calculated Osmolality 300 H Calcium 8.2 L Corrected Calcium 8.4 L Phosphorus 2.6 Magnesium 2.3 Total Bilirubin 0.4 AST 64 H ALT 72 H Alkaline Phosphatase 93 Total Protein 6.3 Albumin 3.7 Globulin 2.6 Albumin/Globulin Ratio 1.4 Coccidioides IgG Ab ABG Interpretation ABG results: 02/02/25 02/02/25 02/03/25 09:25 16:35 08:03 ABG pH 7.21 L 7.21 L 7.25 L ABG pCO2 75 H* 73 H* 64 H ABG pO2 77 L 68 L 61 L ABG HCO3 30 H 30 H 28 H ABG O2 Saturation 92 92 91 ABG Base Excess 0 0 0 VBG pH VBG pCO2 VBG pO2 VBG Base Excess 02/03/25 02/03/25 02/04/25 12:16 19:12 22:53 ABG pH 7.29 L 7.32 L ABG pCO2 58 H 60 H ABG pO2 85 D 63 L D ABG HCO3 28 H 31 H ABG O2 Saturation 95 90 L ABG Base Excess 1 4 H VBG pH 7.38 VBG pCO2 43 VBG pO2 45 VBG Base Excess 0 Quality Measures Quality Measures sepsis Current suspected stage: sepsis Possible source: pulmonary Blood cultures ordered: yes Antibiotic ordered: Yes Advance care planning discussed with:: patient Assessment & Plan Assessment Current Active Medications: Generic Name Dose Route Start Last Admin Trade Name Freq PRN Reason Stop Dose Admin Acetaminophen 650 mg 02/02/25 14:37 Acetaminophen 325 Mg Tablet PO 03/04/25 14:36 Q6H PRN Fever >101.5 Acetaminophen 650 mg 02/02/25 14:37 Acetaminophen 325 Mg Tablet PO 03/04/25 14:36 Q6H PRN PAIN SCALE 1-3 (mild Hydrocodone Bitart/Acetaminophen 1 tab 02/02/25 14:37 Hydrocodone/Apap 10/325 Tab PO 02/07/25 14:36 Q6H PRN PAIN SCALE 4-6 (Moderate Albuterol/Ipratropium 3 ml 02/02/25 15:00 02/05/25 06:41 Albuterol/Ipratropium (Duoneb) Rt Kacy 3 Ml Nebu INH 03/04/25 14:59 3 ml Q4HRRT BLAISE Administration Amlodipine Besylate 10 mg 02/03/25 09:00 02/04/25 09:24 Amlodipine Besylate 5 Mg Tablet PO 03/05/25 08:59 10 mg QDAY BLAISE Administration Atorvastatin Calcium 20 mg 02/02/25 21:00 02/04/25 20:46 Atorvastatin Calcium 20 Mg Tablet PO 03/04/25 20:59 20 mg HS BLAISE Administration Benzonatate 200 mg 02/04/25 11:30 Benzonatate 100 Mg Capsule PO 03/06/25 11:29 Q8HR PRN COUGH Protocol Doxycycline Hyclate 100 mg 02/04/25 21:00 02/04/25 20:46 Doxycycline 100 Mg Tablet PO 02/11/25 20:59 100 mg BID BLAISE Administration Protocol Enoxaparin Sodium 40 mg 02/03/25 09:00 02/04/25 09:16 Enoxaparin Sod Inj 40 Mg/0.4 Ml Syringe SC 02/17/25 08:59 40 mg QDAY BLAISE Administration Guaifenesin/Dextromethorphan 2 each 02/02/25 15:00 02/05/25 06:34 Guaifenesin/Dm Tablet PO 03/04/25 14:59 2 each Q8H BLAISE Administration Ceftriaxone Sodium/Dextrose 1 gm in 50 mls @ 100 mls/hr 02/03/25 09:00 02/04/25 09:16 Rocephin/D5w 1gm Iv Premix IV 02/10/25 08:59 100 mls/hr QDAY BLAISE Administration Methylprednisolone Sodium Succinate 40 mg 02/03/25 21:00 02/04/25 20:46 Methylprednisolone Sod Succ 40 Mg Vial IVP 02/10/25 20:59 40 mg Q12HR BLAISE Administration Ondansetron HCl 4 mg 02/02/25 14:37 Ondansetron Inj 2 Mg/Ml Inj 2 Ml IVP 03/04/25 14:36 Q6H PRN NAUSEA OR VOMITING Protocol Sodium Chloride 2 spray 02/05/25 08:37 Saline Nasal 45 Ml Btl NASAL 03/07/25 08:36 Q6HR PRN CONGESTION Plan Patient is a 69 years old male with past medical history of COPD on home oxygen, hypertension, hypercholesterolemia, bladder cancer status post cystectomy and ileal conduit who presented to the ED with complaint of shortness of breath. Found to be septic, acute on chronic hypoxic respiratory failure needing BiPAP. After examination of the patient and review of the clinical data I feel that this patient needs admission to the hospital for further treatment/evaluation. Nephrology consulted for management of MARYANN on CKD. #Acute kidney injury on CKD Cr 1.6 on admission (baseline Cr 1.2-1.3). Cr improving, currently 1.4. Suspect pre-renal etiology due to dehydration. Patient given 500 cc bolus initially, currently stable. No contrast given or offending medications. Plan: Strict I/Os, monitor UOP Renal dose meds, avoid nephrotoxins Follow up urine electrolytes #Hyperkalemia Likely multifactorial. Patient came in with K 4.9 (02/02). Improving after kayexalate 02/04. -Monitor levels and clinical status #Acute on chronic hypoxic hypercapnic respiratory failure//respiratory acidosis #COPD exacerbation #Community-acquired pneumonia #Sepsis, likely secondary to pneumonia #Electrolyte abnormalities #Elevated troponin ? probably demand ischemia. Patient denies any chest pains. #Hypertension #Hyperlipidemia #Urostomy care continue management by primary team Plan of care discussed with attending physician Dr. Dru Maguire MD PGY-1 Attending Provider Attestation/Addendum Patient seen and examined with resident physician Dr. Maguire. Note reviewed, agree with findings and recommendations with changes made. Patient well-known to me from my CKD clinic. Baseline creatinine 1.3-1.4. Admitted with COPD exacerbation and respiratory acidosis. Noted metabolic alkalosis from a respiratory acidosis compensation. Continue with BiPAP. Will follow along with primary team.
[2025-02-05] MEDS: ENOXAPARIN SOD INJ 40 MG/0.4 ML SYRINGE SC (09:19)
[2025-02-05] MEDS: SALINE NASAL 45 ML BTL 2 SPRAY NASAL (09:19)
[2025-02-05] MEDS: SOD POLYSTYRENE SULFON SUSP 15 GM/60 ML BTL PO (09:19)
[2025-02-05] MEDS: cefTRIAXone/D5w 1gm IV premix 1 GM/50 ML BAG IV (09:20)
[2025-02-05] MEDS: CALCIUM CARBONATE 600 MG TABLET PO (09:20)
[2025-02-05] MEDS: DOXYCYCLINE 100 MG TABLET PO ×2 (09:20→20:49)
--- NOTE | 2025-02-05 10:11 | XR_ITS ---
Examination: CT chest, without intravenous contrast. Sagittal and coronal 2-D reconstructions. Exam date and time: February 05, 2025 2106 hours INDICATIONS: Pulmonary nodules on CT examination of the chest October 30, 2021 CTDI:vol (mGy) 14.6 DLP: (mGycm) 99 Technique: Multiple 3.0 mm axial sections of the chest to been obtained. Bone and lung density settings are obtained. Sagittal and coronal 2-D reconstructions have been obtained. Low dose protocols were performed. One or more of the following dose reduction techniques were used; automated exposure control, adjustment of the mA and/or KV according to patient size, use of iterative reconstruction technique. Findings: Thoracic aortic calcification no aneurysmal dilatation Pulmonary artery segments are not enlarged 5 mm pulmonary nodule with calcification left upper lobe Areas of pneumonia in the right middle lobe and both bases with small bilateral pleural effusions No visualized visualized liver or splenic lesion Cholelithiasis No liver or splenic lesion No pancreatic mass IMPRESSION: Areas of pneumonia in the right middle lobe and both bases Cholelithiasis
[2025-02-05 10:50] LABS: Base Excess, Venous 6 (-3-3); O2 Saturation, Venous 93 % (96-97); PCO2, Venous 44 mmHg (36-56); PO2, Venous 62 mmHg (15-58); pH, Venous 7.45 (7.33-7.66)
--- NOTE | 2025-02-05 13:47 | ESPR_ITS ---
<Statement entered by Robert Bearden MD - 02/05/25 17:40> Patient was seen and examined at the bedside. Patient has been having discomfort with BiPAP machine at night. VBG is were unremarkable. Plan is to keep the patient on BiPAP overnight. Likely monitor the patient and continue antibiotics for now. Blood cultures have been coming negative. Will follow-up with CT chest without contrast given pulmonary nodule seen on CT chest from 2021. Methylprednisone was weaned off to once a day. Kidney functions slightly improved. Nephrology following the case and recommended BiPAP as needed. I discussed and supervised with the technology internship physician who took care of this patient. I personally saw and examined the patient. I agree with most of the assessment and plan. Disclaimer: Despite multiple revisions, due to the dictation software being used, the document bellow may not be free of grammatical errors including phonetic/typographic errors. However, this does not deter from our commitment to providing health care in the patient's best interest in mind. Plan of care discussed with attending Physician Dr. Rachele Bearden MD PGY-3 Documentation for date of: 02/05/25 Subjective Subjective Interval history: Patient seen this morning, alert and oriented, resting comfortably. Denies chest pain, headache, shortness of breath, nausea, vomiting, or dizziness. He states he feels fine and wants to be discharged. Only complaint overnight was discomfort with the BiPAP machine. This morning, he was switched to oxygen mask but was satting at 88%, so BiPAP was restarted overnight and then weaned again this morning. He also complained of nasal dryness and congestion; given saline spray, which he tolerated well. Exam Vital Signs Temp Pulse Resp BP Pulse Ox O2 Del Method O2 Flow Rate 97.0 F 89 20 156/87 H 90 L BiPAP 15 02/05/25 08:00 02/05/25 10:22 02/05/25 10:22 02/05/25 09:20 02/05/25 10:02/05/25 08:00 02/05/25 10:22 FiO2 50 02/05/25 08:00 Narrative Exam General: Patient is AAOx4, currently on Oxygen mask, appears on mild respiratory distress HEENT: normocephalic/atraumatic, vitreous and conjunctival injection, no icterus, patent nares, dry mucosal membranes Lungs: Bilateral wheezing and decreased air entry CVS: S1, S2, RRR, no MGR Abd: Soft, nontender, urostomy bag noted in the RLQ EXT: Trace pedal edema Neuro: Moving all his limbs spontaneously, cranial nerves grossly intact, no focal neurological deficit Objective Labs 02/08/25 05:00 02/08/25 05:00 Labs: Laboratory Results - last 24 hr 02/04/25 02/04/25 02/05/25 14:30 22:53 05:07 WBC 8.7 RBC 3.93 L Hgb 12.0 L Hct 37.7 L MCV 96 MCH 30.5 MCHC 31.8 RDW Std Deviation 48.6 H Plt Count 198 Neut % (Auto) 93 H Lymph % (Auto) 2 L [place] % (Auto) 4 Eos % (Auto) 0 Baso % (Auto) 0 Neut # (Auto) 8.1 H Lymph # (Auto) 0.2 L Will # (Auto) 0.3 Eos # (Auto) 0.0 Baso # (Auto) 0.0 Immature Gran # (Auto) 0.12 H Absolute Nucleated RBC 0.00 Immature Gran % 1 H Nucleated RBC % 0 Puncture Site Right Radial ABG pH 7.32 L ABG pCO2 60 H ABG pO2 63 L D ABG HCO3 31 H ABG O2 Saturation 90 L ABG Base Excess 4 H VBG pH VBG pCO2 VBG pO2 VBG O2 Sat (Da) VBG Base Excess FiO2 50 Sodium 145 Potassium 5.0 5.2 H Chloride 109 H Carbon Dioxide 28.6 Anion Gap 7 BUN 33 H Creatinine 1.4 H Estim Creat Clear Calc 61.6 eGFR 54 L BUN/Creatinine Ratio 24 H Glucose 182 H Calculated Osmolality 300 H Calcium 8.2 L Corrected Calcium 8.4 L Phosphorus 2.6 Magnesium 2.3 Total Bilirubin 0.4 AST 64 H ALT 72 H Alkaline Phosphatase 93 Total Protein 6.3 Albumin 3.7 Globulin 2.6 Albumin/Globulin Ratio 1.4 02/05/25 10:42 WBC RBC Hgb Hct MCV MCH MCHC RDW Std Deviation Plt Count Neut % (Auto) Lymph % (Auto) [place] % (Auto) Eos % (Auto) Baso % (Auto) Neut # (Auto) Lymph # (Auto) [place] # (Auto) Eos # (Auto) Baso # (Auto) Immature Gran # (Auto) Absolute Nucleated RBC Immature Gran % Nucleated RBC % Puncture Site ABG pH ABG pCO2 ABG pO2 ABG HCO3 ABG O2 Saturation ABG Base Excess VBG pH 7.45 VBG pCO2 44 VBG pO2 62 H VBG O2 Sat (Da) 93 L VBG Base Excess 6 H FiO2 Sodium Potassium Chloride Carbon Dioxide Anion Gap BUN Creatinine Estim Creat Clear Calc eGFR BUN/Creatinine Ratio Glucose Calculated Osmolality Calcium Corrected Calcium Phosphorus Magnesium Total Bilirubin AST ALT Alkaline Phosphatase Total Protein Albumin Globulin Albumin/Globulin Ratio ABG Interpretation ABG results: 02/02/25 02/02/25 02/03/25 09:25 16:35 08:03 ABG pH 7.21 L 7.21 L 7.25 L ABG pCO2 75 H* 73 H* 64 H ABG pO2 77 L 68 L 61 L ABG HCO3 30 H 30 H 28 H ABG O2 Saturation 92 92 91 ABG Base Excess 0 0 0 VBG pH VBG pCO2 VBG pO2 VBG Base Excess 02/03/25 02/03/25 02/04/25 12:16 19:12 22:53 ABG pH 7.29 L 7.32 L ABG pCO2 58 H 60 H ABG pO2 85 D 63 L D ABG HCO3 28 H 31 H ABG O2 Saturation 95 90 L ABG Base Excess 1 4 H VBG pH 7.38 VBG pCO2 43 VBG pO2 45 VBG Base Excess 0 02/05/25 10:42 ABG pH ABG pCO2 ABG pO2 ABG HCO3 ABG O2 Saturation ABG Base Excess VBG pH 7.45 VBG pCO2 44 VBG pO2 62 H VBG Base Excess 6 H Quality Measures Quality Measures sepsis Current suspected stage: sepsis Possible source: pulmonary Blood cultures ordered: yes Antibiotic ordered: Yes Advance care planning discussed with:: patient Assessment & Plan Assessment Current Active Medications: Generic Name Dose Route Start Last Admin Trade Name Freq PRN Reason Stop Dose Admin Acetaminophen 650 mg 02/02/25 14:37 Acetaminophen 325 Mg Tablet PO 03/04/25 14:36 Q6H PRN Fever >101.5 Acetaminophen 650 mg 02/02/25 14:37 Acetaminophen 325 Mg Tablet PO 03/04/25 14:36 Q6H PRN PAIN SCALE 1-3 (mild Hydrocodone Bitart/Acetaminophen 1 tab 02/02/25 14:37 Hydrocodone/Apap 10/325 Tab PO 02/07/25 14:36 Q6H PRN PAIN SCALE 4-6 (Moderate Albuterol/Ipratropium 3 ml 02/02/25 15:00 02/05/25 10:18 Albuterol/Ipratropium (Duoneb) Rt Kacy 3 Ml Nebu INH 03/04/25 14:59 3 ml Q4HRRT BLAISE Administration Amlodipine Besylate 10 mg 02/03/25 09:00 02/05/25 09:20 Amlodipine Besylate 5 Mg Tablet PO 03/05/25 08:59 10 mg QDAY BLAISE Administration Atorvastatin Calcium 20 mg 02/02/25 21:00 02/04/25 20:46 Atorvastatin Calcium 20 Mg Tablet PO 03/04/25 20:59 20 mg HS BLAISE Administration Benzonatate 200 mg 02/04/25 11:30 Benzonatate 100 Mg Capsule PO 03/06/25 11:29 Q8HR PRN COUGH Protocol Doxycycline Hyclate 100 mg 02/04/25 21:00 02/05/25 09:20 Doxycycline 100 Mg Tablet PO 02/11/25 20:59 100 mg BID BLAISE Administration Protocol Enoxaparin Sodium 40 mg 02/03/25 09:00 02/05/25 09:19 Enoxaparin Sod Inj 40 Mg/0.4 Ml Syringe SC 02/17/25 08:59 40 mg QDAY BLAISE Administration Guaifenesin/Dextromethorphan 2 each 02/02/25 15:00 02/05/25 06:34 Guaifenesin/Dm Tablet PO 03/04/25 14:59 2 each Q8H BLAISE Administration Ceftriaxone Sodium/Dextrose 1 gm in 50 mls @ 100 mls/hr 02/03/25 09:00 02/05/25 09:20 Rocephin/D5w 1gm Iv Premix IV 02/10/25 08:59 100 mls/hr QDAY BLAISE Administration Methylprednisolone Sodium Succinate 40 mg 02/06/25 09:00 Methylprednisolone Sod Succ 40 Mg Vial IVP 02/13/25 08:59 QDAY BLAISE Ondansetron HCl 4 mg 02/02/25 14:37 Ondansetron Inj 2 Mg/Ml Inj 2 Ml IVP 03/04/25 14:36 Q6H PRN NAUSEA OR VOMITING Protocol Sodium Chloride 2 spray 02/05/25 08:37 Saline Nasal 45 Ml Btl NASAL 03/07/25 08:36 Q6HR PRN CONGESTION Plan 69M with COPD on home O2, HTN, HLD, s/p cystectomy with ileal conduit, admitted for acute on chronic hypoxic hypercapnic respiratory failure and sepsis secondary to CAP. #Acute on chronic hypoxic hypercapnic respiratory failure Previously on BiPAP due to hypercapnia, tolerated well with this likely. Spoke with Dr. Gonsales, who agreed this represents compensated acute respiratory acidosis and recommended continued monitoring Was restarted on BiPAP overnight due to hypercapnia on ABG; now back on oxygen mask VBG showed resolved pH of 7.45 and resolved CO2 44 Plan: * Monitor respiratory status closely * Restart BiPAP if blood gases worsen * Maintain on oxygen mask as tolerated * Repeat ABG/VBG if worsening symptoms * Continue DuoNebs, guaifenesin * Tolerating diet --> continue PO # Pulmonary nodules CT chest from 2021 showed multiple small noncalcified pulmonary nodules. Repeat CT chest and abdomen has been ordered to assess for interval change or new findings Plan: * Await results of current CT chest abdomen * Compared with prior 2021 imaging * Consider pulmonary or oncology referral if concerning interval changes * Monitor for any respiratory symptoms or systemic signs #COPD exacerbation Likely triggered by infection. Improving clinically. Plan: * Continue methylprednisolone * Continue nebulizers and mucolytics * Tessalon given for cough #Community-acquired pneumonia Initial CXR with right base infiltrate. Now afebrile, improved sputum clearance. Plan: * Continue IV ceftriaxone + doxycycline * Monitor WBC, consider CXR in 48?72 hrs if needed #Sepsis, likely secondary to pneumonia Met SIRS criteria on admission, now improving clinically. Plan: * Continue antibiotics * Monitor vitals, lactate (was WNL), and perfusion * Strict I/Os #MARYANN on CKD Creatinine 1.6 on admission (baseline creatinine 1.2-1.3), now improved to 1.5 Nephrology consulted Plan: * Hold nephrotoxins * follow-up renal ultrasound * Monitor renal function daily * IV fluids as tolerated #Electrolyte abnormalities Potassium 5.2 (likely multifactorial) post Kayexalate pending Magnesium 2.3 phosphorus 2.6 corrected calcium 8.4 given 600 mg of p.o. calcium carbonate Plan: * Magnesium + calcium repleted * Continue to monitor potassium ? no signs of EKG changes * Given 15 mg Kayexalate for hyperkalemia * Monitor lytes qAM #Elevated troponin ? likely Type II NSTEMI No chest pain. Troponin trended up mildly (0.067 --> 0.090-->0.100-->0.059), stable EKG. Peak 0.1 now downtrending Plan: * Discontinued troponin trend. * Monitor symptoms * No anticoag needed beyond DVT ppx #Hypertension Stable, no urgent issues Plan: * Continue amlodipine #Hyperlipidemia Plan: * Continue atorvastatin #Urostomy care Bag not changed in over a week Plan: * Request WOCN nurse to change urostomy bag * Monitor for skin breakdown, signs of UTI Health Maintenance: * Code Status: Full * Diet: Cardiac, patient tolerating * Fluids: Maintenance IVFs discontinued; PO hydration adequate * DVT Prophylaxis: Continue enoxaparin * Disposition: Telemetry, continue monitoring respiratory status and electrolytes ----- Plan discussed with attending physician Dr. Jeffrey and senior resident Dr. Monisha Keith MD PGY-1 Internal Medicine Attending Provider Attestation/Addendum I attest that I was physically present for the evaluation, physical examination, lab and imaging review of the patient with the residents. I discussed the case with the residents and agree with the findings and plans of care as documented above. Davida Jeffrey MD
--- NOTE | 2025-02-05 14:20 | PC.SS ---
Rounding Note: PT evaluation is pending. Plan is for CT of chest. D/C 1-2 days.
--- NOTE | 2025-02-05 15:20 | PC.SS ---
SS follow up note; PT evaluation pending, patient is pending Chest CT. Patient will discharge home when medically cleared.
--- NOTE | 2025-02-05 17:19 | PC.SS ---
SURVEY RODMAN conducted bedside contact with the patient. Patient informed SURVEY RODMAN of plan to d/c to SNF. SURVEY RODMAN submitted referrals on [facility]. Preferred SNF is [facility].
[2025-02-05] MEDS: ATORVASTATIN CALCIUM 20 MG TABLET PO (20:49)
[2025-02-06] VITALS (15 sets, daily range): BP systolic 142–182; BP diastolic 72–90; PULSE 66–93; RESP 10–25; TEMP 36.2–36.6; O2SAT 88–96
[2025-02-06] MEDS: ALBUTEROL/IPRATROPIUM (Duoneb) RT SOL 3 ML NEBU INH ×6 (02:54→22:18)
[2025-02-06] MEDS: guaiFENesin/DM TABLET 2 EACH PO ×3 (06:01→22:54)
[2025-02-06 06:19] LABS: Basophils # (Auto) 0.0 Thou/mm3 (0.0-0.2); Basophils % (Auto) 0 % (0-2.5); Eosinophils # (Auto) 0.0 Thou/mm3 (0.0-0.5); Eosinophils % (Auto) 0 % (0-10); Hematocrit 36.5 % (41.0-53.0); Hemoglobin 11.6 g/dL (13.5-16.0); Immature Granulocytes Auto 0.18 Thou/mm3 (0.00-0.00); Lymphocytes # (Auto) 0.3 Thou/mm3 (1.0-4.8); Lymphocytes % (Auto) 3 % (10-50); Mean Corpuscular HGB Conc 31.8 g/dl (31.0-37.0); Mean Corpuscular Hemoglobin 30.6 pg (25.0-35.0); Mean Corpuscular Volume 96 fL (80-100); Monocytes # (Auto) 1.3 Thou/mm3 (0.0-0.8); Monocytes % (Auto) 12 % (0-12); Neutrophils # (Auto) 8.9 Thou/mm3 (1.8-7.7); Neutrophils % (Auto) 83 % (37-80); Nucleated Red Blood Cell # 0.00 Thou/mm3 (0.00-0.00); Nucleated Red Blood Cell % 0 /100 WBC (0); Platelet Count 222 Thou/mm3 (140-440); RDW Standard Deviation 48.8 fL (35.1-43.9); Red Blood Count 3.79 Miln/mm3 (4.50-5.90); White Blood Count 10.7 Thou/mm3 (3.8-10.6)
[2025-02-06 06:45] LABS: Alanine Aminotransferase 142 U/L (10-49); Albumin, Serum 3.5 gm/dL (3.4-4.8); Albumin/Globulin Ratio 1.5 (1.2-2.2); Alkaline Phosphatase 95 U/L (46-116); Anion Gap 8 (7-16); Aspartate Amino Transferase 67 U/L (0-34); BUN/Creatinine Ratio 29 Ratio (12-20); Bilirubin,Total 0.4 mg/dL (0.3-1.2); Blood Urea Nitrogen 35 mg/dL (9-23); Calcium 8.2 mg/dL (8.3-10.6); Calcium (Corrected) 8.6 mg/dL (8.5-10.1); Carbon Dioxide 33.5 mMol/L (20.0-31.0); Chloride 107 mMol/L (98-107); Creatinine (Component) 1.2 mg/dL (0.6-1.3); Estimated Creatinine Clearance 71.5 mL/min (>60); Globulin 2.4 gm/dL (2.3-3.5); Glucose 132 mg/dL (74-106); Magnesium 2.0 mg/dL (1.6-2.6); Osmolality,Calculated 304 (275-295); Phosphorous 2.3 mg/dL (2.4-5.1); Potassium 4.7 mMol/L (3.4-5.1); Sodium 148 mMol/L (136-145); Total Protein 5.9 gm/dL (5.7-8.2); eGFR > 60 See Note
[2025-02-06] MEDS: SALINE NASAL 45 ML BTL 2 SPRAY NASAL (08:54)
[2025-02-06] MEDS: NAPH,KPH MBDB 1 PACKET (1.5 GM) PO (08:55)
[2025-02-06] MEDS: CALCIUM CARBONATE 600 MG TABLET PO (08:56)
[2025-02-06] MEDS: DOXYCYCLINE 100 MG TABLET PO ×2 (08:56→20:02)
[2025-02-06] MEDS: cefTRIAXone/D5w 1gm IV premix 1 GM/50 ML BAG IV (08:57)
[2025-02-06] MEDS: ENOXAPARIN SOD INJ 40 MG/0.4 ML SYRINGE SC (08:57)
--- NOTE | 2025-02-06 09:54 | PD.RESPRO ---
Documentation for date of: 02/06/25 Subjective Subjective Interval history: Mr. Phelps is a 69 years old male with past medical history of COPD on home oxygen, hypertension, hypercholesterolemia, bladder cancer status post cystectomy and ileal conduit , CKD III who presented to the ED with complaint of shortness of breath. At the time of exam, patient is already on BiPAP and not able to provide detailed history. Stated that he has been having worsening cough with sputum production along with shortness of breath. He also said yes for febrile episodes at home. Denies any chest pain, headache, nausea vomiting. 02/04/2025 Patient was seen and examined. Patients vitals have been stable with oxygen saturation at 92%l. Patient states that he does not have any new complaints or concerns, but continues to feel a little weak overall. Endorsed having a little shortness of breath that was feeling better currently. Patient denies any fever, chest pain, abdominal pain. Consulted for MARYANN on CKD 02/05/2025 Patient did not have any acute overnight events. Patient is now back on continuous bipap usage. Regarding patient's vital signs, his bp is elevated with systolic 150s 160s; patient is tachypneic to mid/upper 20s.Patient was seen and examined. Patient does not endorse any new complaints or concerns. Patient endorses some improved breathing. Patient denies fever, chest pain, abdominal pain. Patients creatinine continues to improve, currently 1.4 (baseline 1.2/1.3). 02/06/2025 Patient had no acute events overnight. Patient states he continues to use bipap at night, on oxymask this morning. Patient's vitals and labs were reviewed. Patient states his breathing has been the same, still a little short of breath, saturating 90 O2 on 6L oxy mask. He has been getting breathing treatments and is on steroids. Patient denies any fever or chest pain. Exam Vital Signs Temp Pulse Resp BP Pulse Ox O2 Del Method O2 Flow Rate 97.9 F 85 16 168/81 H 90 L Oxy Mask 6 02/06/25 08:00 02/06/25 08:55 02/06/25 08:00 02/06/25 08:55 02/06/25 08:00 02/06/25 08:00 02/06/25 08:00 FiO2 50 02/06/25 02:56 Narrative Exam GENERAL APPEARANCE: ?AxOx4, generally well-appearing, tachypneic HEENT: ?NC, AT. MMM. EOMI, clear conjunctiva. NECK: ?Supple without lymphadenopathy.? No stiffness or restricted ROM. HEART:? Normal rate and regular rhythm, no m/r/g LUNGS:? mild wheezes bilaterally ABDOMEN: ?Soft, nontender, nondistended ++ ileal conduit BACK: No CVAT, no obvious deformity. EXTREMITIES: ?Without cyanosis, clubbing or edema. NEUROLOGICAL: ?Grossly nonfocal. Alert and oriented, moving all 4 extremities. CN not formally tested but appear grossly intact. Skin: ?Warm and dry without any rash. Objective Labs 02/06/25 05:14 02/06/25 05:14 Labs: Laboratory Results - last 24 hr 02/05/25 02/06/25 10:42 05:14 WBC 10.7 H RBC 3.79 L Hgb 11.6 L Hct 36.5 L MCV 96 MCH 30.6 MCHC 31.8 RDW Std Deviation 48.8 H Plt Count 222 Neut % (Auto) 83 H Lymph % (Auto) 3 L [place] % (Auto) 12 Eos % (Auto) 0 Baso % (Auto) 0 Neut # (Auto) 8.9 H Lymph # (Auto) 0.3 L [place] # (Auto) 1.3 H Eos # (Auto) 0.0 Baso # (Auto) 0.0 Immature Gran # (Auto) 0.18 H Absolute Nucleated RBC 0.00 Immature Gran % 2 H Nucleated RBC % 0 VBG pH 7.45 VBG pCO2 44 VBG pO2 62 H VBG O2 Sat (Da) 93 L VBG Base Excess 6 H Sodium 148 H Potassium 4.7 D Chloride 107 Carbon Dioxide 33.5 H Anion Gap 8 BUN 35 H Creatinine 1.2 Estim Creat Clear Calc 71.5 eGFR > 60 BUN/Creatinine Ratio 29 H Glucose 132 H D Calculated Osmolality 304 H Calcium 8.2 L Corrected Calcium 8.6 Phosphorus 2.3 L Magnesium 2.0 Total Bilirubin 0.4 AST 67 H ALT 142 H Alkaline Phosphatase 95 Total Protein 5.9 Albumin 3.5 Globulin 2.4 Albumin/Globulin Ratio 1.5 ABG Interpretation ABG results: 02/02/25 02/02/25 02/03/25 09:25 16:35 08:03 ABG pH 7.21 L 7.21 L 7.25 L ABG pCO2 75 H* 73 H* 64 H ABG pO2 77 L 68 L 61 L ABG HCO3 30 H 30 H 28 H ABG O2 Saturation 92 92 91 ABG Base Excess 0 0 0 VBG pH VBG pCO2 VBG pO2 VBG Base Excess 02/03/25 02/03/25 02/04/25 12:16 19:12 22:53 ABG pH 7.29 L 7.32 L ABG pCO2 58 H 60 H ABG pO2 85 D 63 L D ABG HCO3 28 H 31 H ABG O2 Saturation 95 90 L ABG Base Excess 1 4 H VBG pH 7.38 VBG pCO2 43 VBG pO2 45 VBG Base Excess 0 02/05/25 10:42 ABG pH ABG pCO2 ABG pO2 ABG HCO3 ABG O2 Saturation ABG Base Excess VBG pH 7.45 VBG pCO2 44 VBG pO2 62 H VBG Base Excess 6 H Quality Measures Quality Measures sepsis Current suspected stage: sepsis Possible source: pulmonary Blood cultures ordered: yes Antibiotic ordered: Yes Advance care planning discussed with:: patient Assessment & Plan Assessment Current Active Medications: Generic Name Dose Route Start Last Admin Trade Name Freq PRN Reason Stop Dose Admin Acetaminophen 650 mg 02/02/25 14:37 Acetaminophen 325 Mg Tablet PO 03/04/25 14:36 Q6H PRN Fever >101.5 Acetaminophen 650 mg 02/02/25 14:37 Acetaminophen 325 Mg Tablet PO 03/04/25 14:36 Q6H PRN PAIN SCALE 1-3 (mild Hydrocodone Bitart/Acetaminophen 1 tab 02/02/25 14:37 Hydrocodone/Apap 10/325 Tab PO 02/07/25 14:36 Q6H PRN PAIN SCALE 4-6 (Moderate Acetylcysteine 3 ml 02/06/25 09:33 Acetylcysteine Kacy 20% 4 Ml Nebu INH 03/08/25 09:32 Q4HR PRN SHORTNESS OF BREATH OR WHEEZE Albuterol/Ipratropium 3 ml 02/02/25 15:00 02/06/25 07:19 Albuterol/Ipratropium (Duoneb) Rt Kacy 3 Ml Nebu INH 03/04/25 14:59 3 ml Q4HRRT BLAISE Administration Amlodipine Besylate 10 mg 02/03/25 09:00 02/06/25 08:55 Amlodipine Besylate 5 Mg Tablet PO 03/05/25 08:59 10 mg QDAY BLAISE Administration Atorvastatin Calcium 20 mg 02/02/25 21:00 02/05/25 20:49 Atorvastatin Calcium 20 Mg Tablet PO 03/04/25 20:59 20 mg HS BLAISE Administration Benzonatate 200 mg 02/04/25 11:30 Benzonatate 100 Mg Capsule PO 03/06/25 11:29 Q8HR PRN COUGH Protocol Calcium Carbonate 600 mg 02/06/25 09:00 02/06/25 08:56 Calcium Carbonate 600 Mg Tablet PO 03/08/25 08:59 600 mg QDAY BLAISE Administration Doxycycline Hyclate 100 mg 02/04/25 21:00 02/06/25 08:56 Doxycycline 100 Mg Tablet PO 02/11/25 20:59 100 mg BID BLAISE Administration Protocol Enoxaparin Sodium 40 mg 02/03/25 09:00 02/06/25 08:57 Enoxaparin Sod Inj 40 Mg/0.4 Ml Syringe SC 02/17/25 08:59 40 mg QDAY BLAISE Administration Guaifenesin/Dextromethorphan 2 each 02/02/25 15:00 02/06/25 06:01 Guaifenesin/Dm Tablet PO 03/04/25 14:59 2 each Q8H BLAISE Administration Ceftriaxone Sodium/Dextrose 1 gm in 50 mls @ 100 mls/hr 02/03/25 09:00 02/06/25 08:57 Rocephin/D5w 1gm Iv Premix IV 02/10/25 08:59 100 mls/hr QDAY BLAISE Administration Methylprednisolone Sodium Succinate 40 mg 02/06/25 09:00 02/06/25 08:56 Methylprednisolone Sod Succ 40 Mg Vial IVP 02/13/25 08:59 40 mg QDAY BLAISE Administration Ondansetron HCl 4 mg 02/02/25 14:37 Ondansetron Inj 2 Mg/Ml Inj 2 Ml IVP 03/04/25 14:36 Q6H PRN NAUSEA OR VOMITING Protocol Sodium Chloride 2 spray 02/05/25 08:37 02/06/25 08:54 Saline Nasal 45 Ml Btl NASAL 03/07/25 08:36 2 sprays Q6HR PRN Administration CONGESTION Plan Patient is a 69 years old male with past medical history of COPD on home oxygen, hypertension, hypercholesterolemia, bladder cancer status post cystectomy and ileal conduit who presented to the ED with complaint of shortness of breath. Found to be septic, acute on chronic hypoxic respiratory failure needing BiPAP. After examination of the patient and review of the clinical data I feel that this patient needs admission to the hospital for further treatment/evaluation. Nephrology consulted for management of MARYANN on CKD. #Acute kidney injury on CKD Cr 1.6 on admission (baseline Cr 1.2-1.3). Cr continues to improve, currently back to baseline of 1.2. Suspect pre-renal etiology due to dehydration. Patient given 500 cc bolus initially, currently stable. No contrast given or offending medications. Nephrology signing off on patient for now Plan: Strict I/Os, monitor UOP Renal dose meds, avoid nephrotoxins Follow up urine electrolytes #Hyperkalemia Likely multifactorial. Patient came in with K 4.9 (02/02). Improving after kayexalate 02/04. -Monitor levels and clinical status #Acute on chronic hypoxic hypercapnic respiratory failure//respiratory acidosis #COPD exacerbation #Community-acquired pneumonia #Sepsis, likely secondary to pneumonia #Electrolyte abnormalities #Elevated troponin ? probably demand ischemia. Patient denies any chest pains. #Hypertension #Hyperlipidemia #Urostomy care continue management by primary team Plan of care discussed with attending physician Dr. Dru Maguire MD PGY-1 Attending Provider Attestation/Addendum Patient seen and examined with resident physician Dr. Maguire. Note reviewed, agree with findings and recommendations with changes made. Patient well-known to me from my CKD clinic. Baseline creatinine 1.3-1.4--1.2. Admitted with COPD exacerbation and respiratory acidosis. Noted metabolic alkalosis from a respiratory acidosis compensation. Continue with BiPAP. Will follow along with primary team. Renal will standby. Thank you for the consult.
[2025-02-06 09:56] LABS: Base Excess, Venous 7 (-3-3); O2 Saturation, Venous 95 % (96-97); PCO2, Venous 40 mmHg (36-56); PO2, Venous 68 mmHg (15-58); pH, Venous 7.50 (7.33-7.66)
[2025-02-06] MEDS: VALSARTAN 80 MG TABLET PO (10:20)
--- NOTE | 2025-02-06 10:46 | PC.SS ---
PASSR completed patient meets Level I criteria. No follow up required.
--- NOTE | 2025-02-06 10:55 | PC.SS ---
JEWEL STRIPPER met with patient to discuss SNF options. Preferred SNF, [facility]; has accepted the patient for placement. Patient acknowledged plan to d/c to [facility] upon medical clearance.
--- NOTE | 2025-02-06 10:56 | PC.SS ---
S[facility], [facility]; booked on [facility]. PASSR submitted on [employer].
--- NOTE | 2025-02-06 10:57 | PC.SS ---
Update: Possible d/c, pending bowel movement.
[2025-02-06] MEDS: ACETYLCYSTEINE SOL 20% 4 ML NEBU 3 ML INH (11:30)
--- NOTE | 2025-02-06 13:42 | ESPR_ITS ---
<Statement entered by Robert Bearden MD - 02/06/25 16:51> Patient was seen and examined at the bedside. Patient was short of breath and desaturated to 70% during the breakfast. He was placed on 8 L oxygen. Breathing treatment was given. Mucomyst and chest PT ordered. VBG were normal. environmental services coordinator stated that patient cannot go to rehab due to requirement of 6 L oxygen. Will likely try to work on LTAC or get approval for large oxygen concentrator if we plan to discharge the patient tomorrow to home. Patient does have trilogy and rescue inhaler which he uses at home. I discussed and supervised with the design intern physician who took care of this patient. I personally saw and examined the patient. I agree with most of the assessment and plan. Disclaimer: Despite multiple revisions, due to the dictation software being used, the document bellow may not be free of grammatical errors including phonetic/typographic errors. However, this does not deter from our commitment to providing health care in the patient's best interest in mind. Plan of care discussed with attending Physician Dr. Rachele Bearden MD PGY-3 Documentation for date of: 02/06/25 Subjective Subjective Interval history: Patient seen this morning, still feels slightly better but continues to have a cough with sputum production. Denies chest pain, fevers, chills, or shortness of breath at rest. He still prefers to go home but understands the need to stay for continued treatment. No other new complaints. Exam Vital Signs Temp Pulse Resp BP Pulse Ox O2 Del Method O2 Flow Rate 97.7 F 86 16 169/84 H 88 L Oxy Mask 15 02/06/25 12:02/06/25 12:02/06/25 12:02/06/25 12:00 02/06/25 12:02/06/25 12:02/06/25 12:00 FiO2 50 02/06/25 02:56 Narrative Exam General: Patient is AAOx4, currently on Oxygen mask, appears on mild respiratory distress HEENT: normocephalic/atraumatic, vitreous and conjunctival injection, no icterus, patent nares, dry mucosal membranes Lungs: Bilateral wheezing and decreased air entry CVS: S1, S2, RRR, no MGR Abd: Soft, nontender, urostomy bag noted in the RLQ EXT: Trace pedal edema Neuro: Moving all his limbs spontaneously, cranial nerves grossly intact, no focal neurological deficit Objective Labs 02/08/25 05:00 02/08/25 05:00 Labs: Laboratory Results - last 24 hr 02/06/25 02/06/25 05:14 09:38 WBC 10.7 H RBC 3.79 L Hgb 11.6 L Hct 36.5 L MCV 96 MCH 30.6 MCHC 31.8 RDW Std Deviation 48.8 H Plt Count 222 Neut % (Auto) 83 H Lymph % (Auto) 3 L [place] % (Auto) 12 Eos % (Auto) 0 Baso % (Auto) 0 Neut # (Auto) 8.9 H Lymph # (Auto) 0.3 L [place] # (Auto) 1.3 H Eos # (Auto) 0.0 Baso # (Auto) 0.0 Immature Gran # (Auto) 0.18 H Absolute Nucleated RBC 0.00 Immature Gran % 2 H Nucleated RBC % 0 VBG pH 7.50 VBG pCO2 40 VBG pO2 68 H VBG O2 Sat (Da) 95 L VBG Base Excess 7 H Sodium 148 H Potassium 4.7 D Chloride 107 Carbon Dioxide 33.5 H Anion Gap 8 BUN 35 H Creatinine 1.2 Estim Creat Clear Calc 71.5 eGFR > 60 BUN/Creatinine Ratio 29 H Glucose 132 H D Calculated Osmolality 304 H Calcium 8.2 L Corrected Calcium 8.6 Phosphorus 2.3 L Magnesium 2.0 Total Bilirubin 0.4 AST 67 H ALT 142 H Alkaline Phosphatase 95 Total Protein 5.9 Albumin 3.5 Globulin 2.4 Albumin/Globulin Ratio 1.5 ABG Interpretation ABG results: 02/02/25 02/02/25 02/03/25 09:25 16:35 08:03 ABG pH 7.21 L 7.21 L 7.25 L ABG pCO2 75 H* 73 H* 64 H ABG pO2 77 L 68 L 61 L ABG HCO3 30 H 30 H 28 H ABG O2 Saturation 92 92 91 ABG Base Excess 0 0 0 VBG pH VBG pCO2 VBG pO2 VBG Base Excess 02/03/25 02/03/25 02/04/25 12:16 19:12 22:53 ABG pH 7.29 L 7.32 L ABG pCO2 58 H 60 H ABG pO2 85 D 63 L D ABG HCO3 28 H 31 H ABG O2 Saturation 95 90 L ABG Base Excess 1 4 H VBG pH 7.38 VBG pCO2 43 VBG pO2 45 VBG Base Excess 0 02/05/25 02/06/25 10:42 09:38 ABG pH ABG pCO2 ABG pO2 ABG HCO3 ABG O2 Saturation ABG Base Excess VBG pH 7.45 7.50 VBG pCO2 44 40 VBG pO2 62 H 68 H VBG Base Excess 6 H 7 H Quality Measures Quality Measures VTE prophylaxis and sepsis Current suspected stage: sepsis Possible source: pulmonary Blood cultures ordered: yes Antibiotic ordered: Yes Advance care planning discussed with:: patient Assessment & Plan Assessment Current Active Medications: Generic Name Dose Route Start Last Admin Trade Name Freq PRN Reason Stop Dose Admin Acetaminophen 650 mg 02/02/25 14:37 Acetaminophen 325 Mg Tablet PO 03/04/25 14:36 Q6H PRN Fever >101.5 Acetaminophen 650 mg 02/02/25 14:37 Acetaminophen 325 Mg Tablet PO 03/04/25 14:36 Q6H PRN PAIN SCALE 1-3 (mild Hydrocodone Bitart/Acetaminophen 1 tab 02/02/25 14:37 Hydrocodone/Apap 10/325 Tab PO 02/07/25 14:36 Q6H PRN PAIN SCALE 4-6 (Moderate Acetylcysteine 3 ml 02/06/25 09:33 02/06/25 11:30 Acetylcysteine Kacy 20% 4 Ml Nebu INH 03/08/25 09:32 3 ml Q4HR PRN Administration SHORTNESS OF BREATH OR WHEEZE Albuterol/Ipratropium 3 ml 02/02/25 15:00 02/06/25 11:31 Albuterol/Ipratropium (Duoneb) Rt Kacy 3 Ml Nebu INH 03/04/25 14:59 3 ml Q4HRRT BLAISE Administration Amlodipine Besylate 10 mg 02/03/25 09:00 02/06/25 08:55 Amlodipine Besylate 5 Mg Tablet PO 03/05/25 08:59 10 mg QDAY BLAISE Administration Atorvastatin Calcium 20 mg 02/02/25 21:00 02/05/25 20:49 Atorvastatin Calcium 20 Mg Tablet PO 03/04/25 20:59 20 mg HS BLAISE Administration Benzonatate 200 mg 02/04/25 11:30 Benzonatate 100 Mg Capsule PO 03/06/25 11:29 Q8HR PRN COUGH Protocol Calcium Carbonate 600 mg 02/06/25 09:00 02/06/25 08:56 Calcium Carbonate 600 Mg Tablet PO 03/08/25 08:59 600 mg QDAY BLAISE Administration Doxycycline Hyclate 100 mg 02/04/25 21:00 02/06/25 08:56 Doxycycline 100 Mg Tablet PO 02/11/25 20:59 100 mg BID BLAISE Administration Protocol Enoxaparin Sodium 40 mg 02/03/25 09:00 02/06/25 08:57 Enoxaparin Sod Inj 40 Mg/0.4 Ml Syringe SC 02/17/25 08:59 40 mg QDAY BLAISE Administration Guaifenesin/Dextromethorphan 2 each 02/02/25 15:00 02/06/25 06:01 Guaifenesin/Dm Tablet PO 03/04/25 14:59 2 each Q8H BLAISE Administration Ceftriaxone Sodium/Dextrose 1 gm in 50 mls @ 100 mls/hr 02/03/25 09:00 02/06/25 08:57 Rocephin/D5w 1gm Iv Premix IV 02/10/25 08:59 100 mls/hr QDAY BLAISE Administration Methylprednisolone Sodium Succinate 40 mg 02/06/25 09:00 02/06/25 08:56 Methylprednisolone Sod Succ 40 Mg Vial IVP 02/13/25 08:59 40 mg QDAY BLAISE Administration Ondansetron HCl 4 mg 02/02/25 14:37 Ondansetron Inj 2 Mg/Ml Inj 2 Ml IVP 03/04/25 14:36 Q6H PRN NAUSEA OR VOMITING Protocol Sodium Chloride 2 spray 02/05/25 08:37 02/06/25 08:54 Saline Nasal 45 Ml Btl NASAL 03/07/25 08:36 2 sprays Q6HR PRN Administration CONGESTION Valsartan 80 mg 02/06/25 10:15 02/06/25 10:20 Valsartan 80 Mg Tablet PO 03/08/25 10:14 80 mg DAILY BLAISE Administration Plan 69M with COPD on home O2, HTN, HLD, s/p cystectomy with ileal conduit, admitted for acute on chronic hypoxic hypercapnic respiratory failure and sepsis secondary to CAP. #Acute on chronic hypoxic hypercapnic respiratory failure Previously on BiPAP due to hypercapnia, tolerated well with this likely. Spoke with Dr. Gonsales, who agreed this represents compensated acute respiratory acidosis and recommended continued monitoring Was restarted on BiPAP overnight due to hypercapnia on ABG; now back on oxygen mask VBG showed resolved pH of 7.45 and resolved CO2 44 Plan: * Started CPT and ordered mucus mist to help mobilize secretions * Monitor respiratory status closely * Restart BiPAP if blood gases worsen * Maintain on oxygen mask as tolerated * Repeat ABG/VBG if worsening symptoms * Continue DuoNebs, guaifenesin * Tolerating diet --> continue PO #COPD exacerbation Likely triggered by infection. Improving clinically. Plan: * Continue methylprednisolone * Continue nebulizers and mucolytics * Tessalon given for cough #Community-acquired pneumonia Initial CXR with right base infiltrate. Now afebrile, improved sputum clearance. Plan: * Continue IV ceftriaxone + doxycycline * Monitor WBC, consider CXR in 48?72 hrs if needed # Pulmonary nodules CT chest from 2021 showed multiple small noncalcified pulmonary nodules. Repeat CT chest Stable from 2021; no new concern Plan: * Repeat CT in 6 months outpatient #Sepsis, likely secondary to pneumonia Met SIRS criteria on admission, now improving clinically. Plan: * Continue antibiotics * Monitor vitals, lactate (was WNL), and perfusion * Strict I/Os #MARYANN on CKD Creatinine Resolved, Cr now 1.2 Plan: * Monitor renal function daily * IV fluids as tolerated #Electrolyte abnormalities Potassium 5.2 (likely multifactorial) post Kayexalate pending Magnesium 2.3 phosphorus 2.6 corrected calcium 8.4 given 600 mg of p.o. calcium carbonate Plan: * Magnesium + calcium repleted * Continue to monitor potassium ? no signs of EKG changes * Given 15 mg Kayexalate for hyperkalemia * Monitor lytes qAM #Elevated troponin ? likely Type II NSTEMI No chest pain. Troponin trended up mildly (0.067 --> 0.090-->0.100-->0.059), stable EKG. Peak 0.1 now downtrending Plan: * Discontinued troponin trend. * Monitor symptoms * No anticoag needed beyond DVT ppx #Hypertension Stable, no urgent issues Plan: * Continue amlodipine #Hyperlipidemia Plan: * Continue atorvastatin #Urostomy care Bag not changed in over a week Plan: * Request WOCN nurse to change urostomy bag * Monitor for skin breakdown, signs of UTI Health Maintenance: * Code Status: Full * Diet: Cardiac, patient tolerating * Fluids: Maintenance IVFs discontinued; PO hydration adequate * DVT Prophylaxis: Continue enoxaparin * Disposition: Telemetry, Not medically stable for discharge at this time. Reassess in 24 hours for discharge potential ----- Plan discussed with attending physician Dr. Jeffrey and senior resident Dr. Monisha Keith MD PGY-1 Internal Medicine Attending Provider Attestation/Addendum I attest that I was physically present for the evaluation, physical examination, lab and imaging review of the patient with the residents. I discussed the case with the residents and agree with the findings and plans of care as documented above. Davida Jeffrey MD
--- NOTE | 2025-02-06 14:48 | PC.SS ---
SOLAR PHOTOVOLTAIC SYSTEMS ENGINEER informed by attending that patient not likely to get below 5-6 L oxygen use. SOLAR PHOTOVOLTAIC SYSTEMS ENGINEER informed that attending that SNF cannot take patient unless under 5L of oxygen. SNF prefers patient to be at 4L if oxygen requires increase. Patient currently on 8L of oxygen. Attending confirmed that patient can utilize BI-PAP at SNF for night time use.
[2025-02-06] MEDS: ATORVASTATIN CALCIUM 20 MG TABLET PO (20:02)
--- NOTE | 2025-02-06 23:45 | PC.NURSE ---
pt arrived to unit via bed and oxymask 10l, accompanied by RT and PATIENT ACCOUNTING REPRESENTATIVE. pt denies pain and nausea, labored breathing observed, gcs 15, telemetry applied, bed alarm on for safety, will continue to monitor.
[2025-02-07] VITALS (17 sets, daily range): BP systolic 138–152; BP diastolic 64–72; PULSE 71–117; RESP 10–30; TEMP 36.1–37.2; O2SAT 90–97; BMI 35.1
[2025-02-07] MEDS: ALBUTEROL/IPRATROPIUM (Duoneb) RT SOL 3 ML NEBU INH ×6 (03:08→23:27)
[2025-02-07 06:06] LABS: Basophils # (Auto) 0.0 Thou/mm3 (0.0-0.2); Basophils % (Auto) 0 % (0-2.5); Eosinophils # (Auto) 0.0 Thou/mm3 (0.0-0.5); Eosinophils % (Auto) 0 % (0-10); Hematocrit 39.0 % (41.0-53.0); Hemoglobin 12.0 g/dL (13.5-16.0); Immature Granulocytes Auto 0.27 Thou/mm3 (0.00-0.00); Lymphocytes # (Auto) 0.3 Thou/mm3 (1.0-4.8); Lymphocytes % (Auto) 3 % (10-50); Mean Corpuscular HGB Conc 30.8 g/dl (31.0-37.0); Mean Corpuscular Hemoglobin 30.3 pg (25.0-35.0); Mean Corpuscular Volume 99 fL (80-100); Monocytes # (Auto) 0.9 Thou/mm3 (0.0-0.8); Monocytes % (Auto) 10 % (0-12); Neutrophils # (Auto) 7.6 Thou/mm3 (1.8-7.7); Neutrophils % (Auto) 84 % (37-80); Nucleated Red Blood Cell # 0.00 Thou/mm3 (0.00-0.00); Nucleated Red Blood Cell % 0 /100 WBC (0); Platelet Count 232 Thou/mm3 (140-440); RDW Standard Deviation 49.0 fL (35.1-43.9); Red Blood Count 3.96 Miln/mm3 (4.50-5.90); White Blood Count 9.0 Thou/mm3 (3.8-10.6)
[2025-02-07] MEDS: guaiFENesin/DM TABLET 2 EACH PO ×3 (06:20→22:35)
[2025-02-07 06:26] LABS: Alanine Aminotransferase 113 U/L (10-49); Albumin, Serum 3.5 gm/dL (3.4-4.8); Albumin/Globulin Ratio 1.4 (1.2-2.2); Alkaline Phosphatase 92 U/L (46-116); Anion Gap 7 (7-16); Aspartate Amino Transferase 42 U/L (0-34); BUN/Creatinine Ratio 27 Ratio (12-20); Bilirubin,Total 0.6 mg/dL (0.3-1.2); Blood Urea Nitrogen 30 mg/dL (9-23); Calcium 8.4 mg/dL (8.3-10.6); Calcium (Corrected) 8.8 mg/dL (8.5-10.1); Carbon Dioxide 33.5 mMol/L (20.0-31.0); Chloride 105 mMol/L (98-107); Creatinine (Component) 1.1 mg/dL (0.6-1.3); Estimated Creatinine Clearance 78.0 mL/min (>60); Globulin 2.5 gm/dL (2.3-3.5); Glucose 122 mg/dL (74-106); Magnesium 1.9 mg/dL (1.6-2.6); Osmolality,Calculated 295 (275-295); Phosphorous 1.9 mg/dL (2.4-5.1); Potassium 4.5 mMol/L (3.4-5.1); Sodium 145 mMol/L (136-145); Total Protein 6.0 gm/dL (5.7-8.2); eGFR > 60 See Note
[2025-02-07] MEDS: ENOXAPARIN SOD INJ 40 MG/0.4 ML SYRINGE SC (08:48)
[2025-02-07] MEDS: NAPH,KPH MBDB 1 PACKET (1.5 GM) PO (08:48)
[2025-02-07] MEDS: DOXYCYCLINE 100 MG TABLET PO ×2 (08:49→21:26)
[2025-02-07] MEDS: VALSARTAN 80 MG TABLET PO (08:49)
[2025-02-07] MEDS: CALCIUM CARBONATE 600 MG TABLET PO (08:49)
[2025-02-07] MEDS: cefTRIAXone/D5w 1gm IV premix 1 GM/50 ML BAG IV (08:50)
--- NOTE | 2025-02-07 10:12 | PC.SS ---
Addendum entered by Kateryna Crabtree 02/07/25 12:08: SS follow up note; SS was contacted by Ana from [facility] and informed SS that patient does not qualify for LTAC. Laura from [facility] was requesting revenue codes, however patient does not meet criteria and codes required for qualifying LTAC Criteria. SS will update Team A. Original Note: SS follow up note; SS attempted to contact Anastacio from [facility] however is non vacation, SS contacted [facility] [phone] and she informed SS that patient might not qualify for LTAC however asked to speak to [facility] team to verify the Revenue codes. SS sent [facility] referral via fax as requested by Laura. SS will stand by for further needs.
--- NOTE | 2025-02-07 14:17 | ESPR_ITS ---
<Statement entered by Mono Gu MD - 02/07/25 17:22> Patient seen and examined at bedside. I discussed and supervised with the analytics intern physician who took care of this patient. I personally saw and examined the patient. I agree with most of the assessment and plan. Patient does not show much improvement, reports high O2 requirements at baseline. 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 Possible DC tomorrow. Continuing rocephin and doxy for pneumonia. Managing COPD with BiPAP and O2 as tolerated, steroids, chest PT. Plan of care discussed with attending Dr. Keller. Mono Gu MD PGY-2 Documentation for date of: 02/07/25 Subjective Subjective Interval history: Patient seen this morning, alert and oriented. He reports his breathing remains the same, with persistent productive cough. He states he is now producing more greenish, thick sputum, and complains of chest pain which he attributes to excessive coughing. Denies chest tightness, fevers, chills, body aches, nausea, vomiting, or abdominal discomfort. Reports mild headache, no dizziness or lightheadedness. Energy remains unchanged. Currently on 9L oxygen via mask, sats at 88%. Patient says he?s been sitting all day and wants to move around, but desaturates into the low 80s when off oxygen mask. When asked about discharge to a facility, he stated he is open to it, but does not want to feel ?stuck.? Exam Vital Signs Temp Pulse Resp BP Pulse Ox O2 Del Method O2 Flow Rate 98.2 F 78 21 H 146/70 H 90 L Oxy Mask 9 02/07/25 11:59 02/07/25 11:59 02/07/25 11:59 02/07/25 11:59 02/07/25 11:59 02/07/25 11:59 02/07/25 11:59 FiO2 50 02/07/25 03:09 Narrative Exam General: Patient is AAOx4, currently on Oxygen mask, appears on mild respiratory distress HEENT: normocephalic/atraumatic, vitreous and conjunctival injection, no icterus, patent nares, dry mucosal membranes Lungs: Bilateral wheezing and decreased air entry CVS: S1, S2, RRR, no MGR Abd: Soft, nontender, urostomy bag noted in the RLQ EXT: Trace pedal edema Neuro: Moving all his limbs spontaneously, cranial nerves grossly intact, no focal neurological deficit Objective Labs 02/08/25 05:00 02/08/25 05:00 Labs: Laboratory Results - last 24 hr 02/07/25 04:34 WBC 9.0 RBC 3.96 L Hgb 12.0 L Hct 39.0 L MCV 99 MCH 30.3 MCHC 30.8 L RDW Std Deviation 49.0 H Plt Count 232 Neut % (Auto) 84 H Lymph % (Auto) 3 L [place] % (Auto) 10 Eos % (Auto) 0 Baso % (Auto) 0 Neut # (Auto) 7.6 Lymph # (Auto) 0.3 L [place] # (Auto) 0.9 H Eos # (Auto) 0.0 Baso # (Auto) 0.0 Immature Gran # (Auto) 0.27 H Absolute Nucleated RBC 0.00 Immature Gran % 3 H Nucleated RBC % 0 Sodium 145 Potassium 4.5 Chloride 105 Carbon Dioxide 33.5 H Anion Gap 7 BUN 30 H Creatinine 1.1 Estim Creat Clear Calc 78.0 eGFR > 60 BUN/Creatinine Ratio 27 H Glucose 122 H Calculated Osmolality 295 Calcium 8.4 Corrected Calcium 8.8 Phosphorus 1.9 L Magnesium 1.9 Total Bilirubin 0.6 AST 42 H ALT 113 H Alkaline Phosphatase 92 Total Protein 6.0 Albumin 3.5 Globulin 2.5 Albumin/Globulin Ratio 1.4 ABG Interpretation ABG results: 02/02/25 02/02/25 02/03/25 09:25 16:35 08:03 ABG pH 7.21 L 7.21 L 7.25 L ABG pCO2 75 H* 73 H* 64 H ABG pO2 77 L 68 L 61 L ABG HCO3 30 H 30 H 28 H ABG O2 Saturation 92 92 91 ABG Base Excess 0 0 0 VBG pH VBG pCO2 VBG pO2 VBG Base Excess 02/03/25 02/03/25 02/04/25 12:16 19:12 22:53 ABG pH 7.29 L 7.32 L ABG pCO2 58 H 60 H ABG pO2 85 D 63 L D ABG HCO3 28 H 31 H ABG O2 Saturation 95 90 L ABG Base Excess 1 4 H VBG pH 7.38 VBG pCO2 43 VBG pO2 45 VBG Base Excess 0 02/05/25 02/06/25 10:42 09:38 ABG pH ABG pCO2 ABG pO2 ABG HCO3 ABG O2 Saturation ABG Base Excess VBG pH 7.45 7.50 VBG pCO2 44 40 VBG pO2 62 H 68 H VBG Base Excess 6 H 7 H Quality Measures Quality Measures VTE prophylaxis and sepsis Current suspected stage: sepsis Possible source: pulmonary Blood cultures ordered: yes Antibiotic ordered: Yes Advance care planning discussed with:: patient Assessment & Plan Assessment Current Active Medications: Generic Name Dose Route Start Last Admin Trade Name Freq PRN Reason Stop Dose Admin Acetaminophen 650 mg 02/02/25 14:37 Acetaminophen 325 Mg Tablet PO 03/04/25 14:36 Q6H PRN Fever >101.5 Acetaminophen 650 mg 02/02/25 14:37 Acetaminophen 325 Mg Tablet PO 03/04/25 14:36 Q6H PRN PAIN SCALE 1-3 (mild Hydrocodone Bitart/Acetaminophen 1 tab 02/02/25 14:37 Hydrocodone/Apap 10/325 Tab PO 02/07/25 14:36 Q6H PRN PAIN SCALE 4-6 (Moderate Acetylcysteine 3 ml 02/06/25 09:33 02/06/25 11:30 Acetylcysteine Kacy 20% 4 Ml Nebu INH 03/08/25 09:32 3 ml Q4HR PRN Administration SHORTNESS OF BREATH OR WHEEZE Albuterol/Ipratropium 3 ml 02/02/25 15:00 02/07/25 11:16 Albuterol/Ipratropium (Duoneb) Rt Kacy 3 Ml Nebu INH 03/04/25 14:59 3 ml Q4HRRT BLAISE Administration Amlodipine Besylate 10 mg 02/03/25 09:00 02/07/25 08:48 Amlodipine Besylate 5 Mg Tablet PO 03/05/25 08:59 10 mg QDAY BLAISE Administration Atorvastatin Calcium 20 mg 02/02/25 21:00 02/06/25 20:02 Atorvastatin Calcium 20 Mg Tablet PO 03/04/25 20:59 20 mg HS BLAISE Administration Benzonatate 200 mg 02/04/25 11:30 Benzonatate 100 Mg Capsule PO 03/06/25 11:29 Q8HR PRN COUGH Protocol Calcium Carbonate 600 mg 02/06/25 09:00 07/17/25 08:49 Calcium Carbonate 600 Mg Tablet PO 03/08/25 08:59 600 mg QDAY BLAISE Administration Doxycycline Hyclate 100 mg 02/04/25 21:00 02/07/25 08:49 Doxycycline 100 Mg Tablet PO 02/11/25 20:59 100 mg BID BLAISE Administration Protocol Enoxaparin Sodium 40 mg 02/03/25 09:00 02/07/25 08:48 Enoxaparin Sod Inj 40 Mg/0.4 Ml Syringe SC 02/17/25 08:59 40 mg QDAY BLAISE Administration Guaifenesin/Dextromethorphan 2 each 02/02/25 15:00 02/07/25 06:20 Guaifenesin/Dm Tablet PO 03/04/25 14:59 2 each Q8H BLAISE Administration Ceftriaxone Sodium/Dextrose 1 gm in 50 mls @ 100 mls/hr 02/03/25 09:00 02/07/25 08:50 Rocephin/D5w 1gm Iv Premix IV 02/10/25 08:59 100 mls/hr QDAY BLAISE Administration Methylprednisolone Sodium Succinate 40 mg 02/06/25 09:00 02/07/25 08:49 Methylprednisolone Sod Succ 40 Mg Vial IVP 02/13/25 08:59 40 mg QDAY BLAISE Administration Ondansetron HCl 4 mg 02/02/25 14:37 Ondansetron Inj 2 Mg/Ml Inj 2 Ml IVP 03/04/25 14:36 Q6H PRN NAUSEA OR VOMITING Protocol Sodium Chloride 2 spray 02/05/25 08:37 02/06/25 08:54 Saline Nasal 45 Ml Btl NASAL 03/07/25 08:36 2 sprays Q6HR PRN Administration CONGESTION Valsartan 80 mg 02/06/25 10:15 02/07/25 08:49 Valsartan 80 Mg Tablet PO 03/08/25 10:14 80 mg DAILY BLAISE Administration Plan 69M with COPD on home O2, HTN, HLD, s/p cystectomy with ileal conduit, admitted for acute on chronic hypoxic hypercapnic respiratory failure and sepsis secondary to CAP. #Acute on chronic hypoxic hypercapnic respiratory failure Previously on BiPAP due to hypercapnia, tolerated well with this likely. Spoke with Dr. Gonsales, who agreed this represents compensated acute respiratory acidosis and recommended continued monitoring Was restarted on BiPAP overnight due to hypercapnia on ABG; now back on oxygen mask VBG showed resolved pH of 7.45 and resolved CO2 44 Plan: * Started CPT and ordered mucus mist to help mobilize secretions * Monitor respiratory status closely * Restart BiPAP if blood gases worsen * Maintain on oxygen mask as tolerated * Repeat ABG/VBG if worsening symptoms * Continue DuoNebs, guaifenesin * Tolerating diet --> continue PO #COPD exacerbation Likely triggered by infection. Improving clinically. Plan: * Continue methylprednisolone * Continue nebulizers and mucolytics * Tessalon given for cough #Community-acquired pneumonia Initial CXR with right base infiltrate. Now afebrile, improved sputum clearance. Plan: * Continue IV ceftriaxone + doxycycline * Monitor WBC, consider CXR in 48?72 hrs if needed # Pulmonary nodules CT chest from 2021 showed multiple small noncalcified pulmonary nodules. Repeat CT chest Stable from 2021; no new concern Plan: * Repeat CT in 6 months outpatient #Sepsis, likely secondary to pneumonia Met SIRS criteria on admission, now improving clinically. Plan: * Continue antibiotics * Monitor vitals, lactate (was WNL), and perfusion * Strict I/Os #MARYANN on CKD Creatinine Resolved, Cr now 1.2 Plan: * Monitor renal function daily * IV fluids as tolerated #Electrolyte abnormalities Potassium 5.2 (likely multifactorial) post Kayexalate pending Magnesium 2.3 phosphorus 2.6 corrected calcium 8.4 given 600 mg of p.o. calcium carbonate Plan: * Magnesium + calcium repleted * Continue to monitor potassium ? no signs of EKG changes * Given 15 mg Kayexalate for hyperkalemia * Monitor lytes qAM #Elevated troponin ? likely Type II NSTEMI No chest pain. Troponin trended up mildly (0.067 --> 0.090-->0.100-->0.059), stable EKG. Peak 0.1 now downtrending Plan: * Discontinued troponin trend. * Monitor symptoms * No anticoag needed beyond DVT ppx #Hypertension Stable, no urgent issues Plan: * Continue amlodipine #Hyperlipidemia Plan: * Continue atorvastatin #Urostomy care Bag not changed in over a week Plan: * Request WOCN nurse to change urostomy bag * Monitor for skin breakdown, signs of UTI #Disposition planning Patient remains on high oxygen requirements (9L O2 mask) and desaturates with minimal exertion. Still producing thick sputum with persistent wheezing. Not safe for discharge home at this time. Plan: * Continue inpatient treatment for pneumonia and COPD exacerbation * Case management involved; evaluating for LTAC (long-term acute care) placement due to prolonged oxygen needs and slow recovery * Patient open to SNF/LTAC but voiced concern about being ?stuck? ? will continue discussing goals and expectations * Reassess oxygen status and functional capacity daily Health Maintenance: * Code Status: Full * Diet: Cardiac, patient tolerating * Fluids: Maintenance IVFs discontinued; PO hydration adequate * DVT Prophylaxis: Continue enoxaparin ----- Plan discussed with attending physician Dr. Keller and senior resident Dr. Hung MD PGY-1 Internal Medicine Attending Provider Attestation/Addendum Veronica Kinney DO, attest that I was physically present for the hawkins portions of the service and evaluated the patient with the resident and I reviewed and discussed the case with the resident and agree with the resident's findings and plans of care as documented above Patient seen and eval this a.m. Patient states that on his baseline he wears oxygen at all times and was unsatisfied with seeing pulmonology outpatient as he was frequently advised to lose weight. However, patient has difficulty with his mobility due to his persistent dyspnea. Patient states that he maxes out his settings on his home O2 at 5 L and at times desaturates into the 70s. Patient continues to have scattered wheezing on exam. Will continue with breathing treatments every 4 hours. However, patient will need a pulmonary rehab/LTAC. banking services advisor to arrange for LTAC placement. Continue with current management otherwise and titrate O2 as tolerated. Patient states that he is eager to get up from bed. Will place recliner and have patient get out of bed to chair
--- NOTE | 2025-02-07 14:25 | ESDS_ITS ---
<Statement entered by Veronica Keller DO - 02/09/25 08:52> I, Veronica Keller DO, attest that I was physically present for the hawkins portions of the service and evaluated the patient with the resident and I reviewed and discussed the case with the resident and agree with the resident's findings and plans of care as documented above <Statement entered by Mono Gu MD - 02/08/25 17:01> Patient seen and examined at bedside. I discussed and supervised with the software development intern physician who took care of this patient. I personally saw and examined the patient. I agree with most of the assessment and plan. Plan of care discussed with attending Dr. Keller. Mono Gu MD PGY-2 Planned Discharge Date 02/08/25 DS: Providers Provider Date of admission: 02/02/25 14:33 Primary care physician: Radha Davila MD Admitting Provider: Davida Jeffrey MD Attending Provider on Admission: Davida Jeffrey MD Consults: 02/03/25 10:11 Consult to Nephrology Routine Comment: Consulting Provider: Kay Gonsales 02/05/25 10:14 PT [Referral Physical Therapy] Routine Comment: Physician Instructions: Attending Provider on DC: Dr. Keller Discharging Provider: RESIDENT Jamaal DS: Diagnosis Problem List Completed Was Problem List Reviewed/Reconciled?: Yes Hospital Course Hospital Course Hospital course: The patient is a 69-year-old male with a history of COPD on home oxygen, hypertension, hyperlipidemia, and bladder cancer status post cystectomy with ileal conduit who presented with worsening shortness of breath, productive cough, and subjective fevers. On arrival, he was febrile, hypoxic, and tachypneic, requiring initiation of BiPAP for acute on chronic hypercapnic respiratory failure. ABG showed a pH of 7.21 with CO2 of 75. Imaging revealed multifocal pneumonia involving the right middle lobe and bilateral lung bases, small bilateral pleural effusions, and a 5 mm calcified pulmonary nodule in the left upper lobe. These nodules were stable compared to a prior chest CT from 2021, which showed multiple small non-calcified pulmonary nodules without interval growth. He was started on IV ceftriaxone and doxycycline for presumed community-acquired pneumonia and given IV methylprednisolone for COPD exacerbation. He received nebulized albuterol, guaifenesin, mucolytic therapy with mucus mist, and chest physiotherapy. Over the course of his stay, he experienced persistent coughing with production of thick green sputum and occasional cough-related chest pain. His oxygen requirement has remained elevated, needing 8?9 L on a face mask to maintain saturations in the high 80s to low 90s. He desaturated to the low 80s off oxygen, which has limited physical mobility and readiness for discharge. Renal function improved during hospitalization, with creatinine trending down from 1.4 to 1.1. His liver enzymes, initially elevated, have also trended down (AST from 67 to 42, ALT from 142 to 113). Phosphorus was low at 1.9 and repleted with Neutrak. VBG obtained showed normalized pH and CO2, indicating improving acid-base status. Blood cultures remained negative after 48 hours, and the MRSA nares screen was still pending at the time of note. The patient remained clinically stable, afebrile, and hemodynamically intact throughout hospitalization. He tolerated a regular diet, had no further GI symptoms, and was consistently alert, oriented, and able to participate in care decisions. Although he initially expressed interest in going home, he remained open to facility placement if needed. Due to persistently high oxygen requirements and limited exertional tolerance, case management arranged discharge to a long-term acute care (LTAC) facility for continued respiratory support and pulmonary rehabilitation. Diagnosis During Admission: #Community-acquired pneumonia # Acute COPD exacerbation #Acute on chronic hypercapnic respiratory failure #Pulmonary nodules (stable) #Small bilateral pleural effusions #Acute kidney injury on CKD (resolved) #Transaminitis (trending down) #Mild hypophosphatemia #Hypertension #Hyperlipidemia #History of bladder cancer, s/p cystectomy with ileal conduit Discharge Plans: -Please continue taking all home meds as previously prescribed. -Continue to use BiPAP at night when sleeping. -Please follow up with your primary doctor within 7-10 days. -Please return to the ED if you develop new or worsening symptoms. ----- Plan discussed with attending physician Dr. Keller and senior resident Dr. Hung MD PGY-1 Internal Medicine Time Spent with Patient Time attestation: Total time spent providing and/or coordinating discharge services: Time spent: Greater than 30 minutes Exam Vital Signs Temp Pulse Resp BP Pulse Ox O2 Del Method O2 Flow Rate 98.2 F 82 24 H 146/70 H 92 L Oxy Mask 9 02/07/25 11:59 02/07/25 14:21 02/07/25 14:21 02/07/25 11:59 02/07/25 14:21 02/07/25 11:59 02/07/25 14:21 FiO2 50 02/07/25 03:09 Narrative Exam General: Patient is AAOx4, currently on Oxygen mask, appears on mild respiratory distress HEENT: normocephalic/atraumatic, vitreous and conjunctival injection, no icterus, patent nares, dry mucosal membranes Lungs: Bilateral wheezing and decreased air entry CVS: S1, S2, RRR, no MGR Abd: Soft, nontender, urostomy bag noted in the RLQ EXT: Trace pedal edema Neuro: Moving all his limbs spontaneously, cranial nerves grossly intact, no focal neurological deficit Discharge Plan Plan Patient Disposition: Xfer External [facility] Acute Patient condition on transfer: Stable Care Plan Goals: Please continue taking all home meds as previously prescribed. Continue to use BiPAP at night when sleeping. Please follow up with your primary doctor within 7-10 days. Please return to the ED if you develop new or worsening symptoms. Prescriptions/Referrals Prescriptions/Med Rec: New acetylcysteine 200 mg/mL (20 %) Solution 3 ml INH Q4HR PRN (Reason: Shortness Of Breath Or Wheeze) Qty: 30 0RF acetaminophen 325 mg Tablet 650 mg PO Q6H PRN (Reason: Fever >101.5) Qty: 1 0RF acetaminophen 325 mg Tablet 650 mg PO Q6H PRN (Reason: Pain Scale 1-3 (Mild) Qty: 1 0RF atorvastatin 20 mg Tablet 20 mg PO HS Qty: 30 0RF ipratropium-albuterol 0.5 mg-3 mg(2.5 mg base)/3 mL Solution For Nebulization 3 ml INH Q4HRRT Qty: 90 0RF valsartan 80 mg Tablet 80 mg PO DAILY Qty: 30 0RF amlodipine 5 mg Tablet 10 mg PO QDAY Qty: 30 0RF hydrocodone-acetaminophen 10-325 mg Tablet 1 tab PO Q6H MDD 4 PRN (Reason: Pain Scale 4-6 (Moderate) Qty: 10 0RF calcium carbonate 600 mg calcium (1,500 mg) Tablet 600 mg PO QDAY Qty: 10 0RF benzonatate 100 mg Capsule 200 mg PO Q8HR PRN (Reason: Cough) Qty: 7 0RF Mucinex DM 30-600 mg Tablet Extended Release 12 Hr 2 tab PO Q8H Qty: 14 0RF doxycycline hyclate 100 mg Tablet 100 mg PO BID 4 Days Qty: 8 0RF enoxaparin 40 mg/0.4 mL Syringe 40 mg SCi QDAY Qty: 4 0RF [place] Nasal 0.65 % Aerosol,[place] 2 spray Nasally Q6HR PRN (Reason: Congestion) Qty: 44 0RF ceftriaxone in dextrose,iso-os 1 gram/50 mL Piggyback 1 g IV QDAY 4 Days Qty: 24 0RF ondansetron HCl (PF) 4 mg/2 mL Solution 4 mg IVP Q6H PRN (Reason: Nausea Or Vomiting) Qty: 20 0RF Solu-Medrol (PF) 40 mg/mL Recon Soln 40 mg IVP QDAY Qty: 25 0RF Continued valsartan 80 mg tablet 80 mg PO DAILY Patient Comments: TAKE 1 TABLET BY MOUTH EVERY DAY Discontinued albuterol sulfate [ProAir HFA] 90 mcg/actuation Hfa Aerosol Inhaler 2 puff INHALATION Q4H PRN (Reason: sob) Qty: 0 tiotropium bromide [Spiriva with HandiHaler] 18 mcg Capsule, W/Inhalation Device 1 cap INHALATION QDAY Qty: 0 ipratropium-albuterol 0.5 mg-3 mg(2.5 mg base)/3 mL Solution For Nebulization 3 ml INHALATION Q6H PRN (Reason: Dyspnea) amlodipine 10 mg Tablet 10 mg PO HS fluticasone propion-salmeterol [Advair Diskus] 500-50 mcg/dose Blister With Device 1 inh INHALATION Q12H Referrals: Radha Davila MD [Primary Care Provider] - Patient/Caregiver Discharge Instructions Print Language: Iranian Stand Alone Forms: [facility] Award Info., Patient Portal Info Letter Discharge Order Discharge Orders: Discharge (Routine); Ordered 02/08/25 Ordered By: Robert Bearden Quality Discharge Quality Measures VTE prophylaxis
[2025-02-07] MEDS: ATORVASTATIN CALCIUM 20 MG TABLET PO (21:26)
[2025-02-08] VITALS (9 sets, daily range): BP systolic 130–170; BP diastolic 64–91; PULSE 63–86; RESP 16–24; TEMP 36.4–36.6; O2SAT 92–95; BMI 33.7
[2025-02-08] MEDS: ALBUTEROL/IPRATROPIUM (Duoneb) RT SOL 3 ML NEBU INH ×3 (02:01→10:40)
[2025-02-08 06:31] LABS: Basophils # (Auto) 0.0 Thou/mm3 (0.0-0.2); Basophils % (Auto) 0 % (0-2.5); Eosinophils # (Auto) 0.0 Thou/mm3 (0.0-0.5); Eosinophils % (Auto) 0 % (0-10); Hematocrit 37.8 % (41.0-53.0); Hemoglobin 12.0 g/dL (13.5-16.0); Immature Granulocytes Auto 0.32 Thou/mm3 (0.00-0.00); Lymphocytes # (Auto) 0.4 Thou/mm3 (1.0-4.8); Lymphocytes % (Auto) 5 % (10-50); Mean Corpuscular HGB Conc 31.7 g/dl (31.0-37.0); Mean Corpuscular Hemoglobin 30.8 pg (25.0-35.0); Mean Corpuscular Volume 97 fL (80-100); Monocytes # (Auto) 0.7 Thou/mm3 (0.0-0.8); Monocytes % (Auto) 8 % (0-12); Neutrophils # (Auto) 7.4 Thou/mm3 (1.8-7.7); Neutrophils % (Auto) 83 % (37-80); Nucleated Red Blood Cell # 0.00 Thou/mm3 (0.00-0.00); Nucleated Red Blood Cell % 0 /100 WBC (0); Platelet Count 244 Thou/mm3 (140-440); RDW Standard Deviation 47.7 fL (35.1-43.9); Red Blood Count 3.90 Miln/mm3 (4.50-5.90); White Blood Count 8.9 Thou/mm3 (3.8-10.6)
[2025-02-08] MEDS: guaiFENesin/DM TABLET 2 EACH PO (06:42)
[2025-02-08 06:52] LABS: Alanine Aminotransferase 89 U/L (10-49); Albumin, Serum 3.4 gm/dL (3.4-4.8); Albumin/Globulin Ratio 1.4 (1.2-2.2); Alkaline Phosphatase 81 U/L (46-116); Anion Gap 7 (7-16); Aspartate Amino Transferase 37 U/L (0-34); BUN/Creatinine Ratio 22 Ratio (12-20); Bilirubin,Total 0.6 mg/dL (0.3-1.2); Blood Urea Nitrogen 24 mg/dL (9-23); Calcium 8.2 mg/dL (8.3-10.6); Calcium (Corrected) 8.7 mg/dL (8.5-10.1); Carbon Dioxide 31.9 mMol/L (20.0-31.0); Chloride 104 mMol/L (98-107); Creatinine (Component) 1.1 mg/dL (0.6-1.3); Estimated Creatinine Clearance 76.6 mL/min (>60); Globulin 2.4 gm/dL (2.3-3.5); Glucose 102 mg/dL (74-106); Magnesium 2.0 mg/dL (1.6-2.6); Osmolality,Calculated 288 (275-295); Phosphorous 2.5 mg/dL (2.4-5.1); Potassium 5.0 mMol/L (3.4-5.1); Sodium 143 mMol/L (136-145); Total Protein 5.8 gm/dL (5.7-8.2); eGFR > 60 See Note
[2025-02-08] MEDS: cefTRIAXone/D5w 1gm IV premix 1 GM/50 ML BAG IV (08:17)
[2025-02-08] MEDS: ENOXAPARIN SOD INJ 40 MG/0.4 ML SYRINGE SC (08:18)
[2025-02-08] MEDS: CALCIUM CARBONATE 600 MG TABLET PO (08:19)
[2025-02-08] MEDS: DOXYCYCLINE 100 MG TABLET PO (08:19)
[2025-02-08] MEDS: VALSARTAN 80 MG TABLET PO (08:19)
--- NOTE | 2025-02-08 09:06 | PC.SS ---
SS follow up note; Patient does not have Transportation coverage through [facility], patient is unable to provide payment, SS had Jovan transfer nurse sign YAMIL form. SS contacted [facility] to set up transportation for 11AM. Patient will be transported on 9L of oxy mask. [facility] [address] [facility] [facility] report contact number is# [phone]. RM#[id number]. SS met with patient and informed him of ETA as well as contacted Altagracia from [place] and reported ETA, Nurse Vivian aware as well. SS will stand by for further needs.
--- NOTE | 2025-02-08 11:05 | PC.NURSE ---
report given to Brennen Nielsen in [facility]
== END 2025-02-08 11:10 | DRG 871 ==
LOC: SERX 09:40 → SERHOLD 14:42 → S2NX 23:24 → S3SX 02-06 23:47
PROVIDERS: Student in an Organized Health Care Education/Training Program; Admitting Provider Student in an Organized Health Care Education/Training Program; Emergency Provider Family Medicine; PCP Family Medicine; Visit Provider Student in an Organized Health Care Education/Training Program
DX: A41.9 Sepsis, unspecified organism (principal); J18.9 Pneumonia, unspecified organism; J96.21 Acute and chronic respiratory failure with hypoxia; J96.22 Acute and chronic respiratory failure with hypercapnia; J44.1 Chronic obstructive pulmonary disease with (acute) exacerbation; J44.0 Chronic obstructive pulmonary disease with (acute) lower respiratory infection; N17.9 Acute kidney failure, unspecified; E87.4 Mixed disorder of acid-base balance; I12.9 Hypertensive chronic kidney disease with stage 1 through stage 4 chronic kidney disease, or unspecified chronic kidney disease; E78.00 Pure hypercholesterolemia, unspecified; I45.10 Unspecified right bundle-branch block; E83.39 Other disorders of phosphorus metabolism; E87.5 Hyperkalemia; N18.30 Chronic kidney disease, stage 3 unspecified; Z91.199 Patient's noncompliance with other medical treatment and regimen due to unspecified reason; Z99.81 Dependence on supplemental oxygen; Z85.51 Personal history of malignant neoplasm of bladder; Z90.6 Acquired absence of other parts of urinary tract; Z87.891 Personal history of nicotine dependence; Z88.8 Allergy status to other drugs, medicaments and biological substances; R74.01 Elevation of levels of liver transaminase levels
CPT/HCPCS: 36415; 36600; 71250; 80053; 80061; 81001; 82803; 83036; 83605; 83735; 83880; 84100; 84132; 84484; 85025; 85610; 85730; 86331; 86635; 87040; 87081; 87400; 87811; 93225; 93306; 93975; 94640; 94660; 94667; 96361; 96365; 96366; 96375; 96376; 97162; A9270; J0456; J0612; J0696; J1650; J2919; J3475; J3490; J7030; J7050; J7999

== ENCOUNTER → 2025-04-03 | Outpatient (CLI) | payer MEDICARE, SELFPAY ==
[2025-04-03 12:24] LABS: Basophils # (Auto) 0.0 Thou/mm3 (0.0-0.2); Basophils % (Auto) 1 % (0-2.5); Eosinophils # (Auto) 0.4 Thou/mm3 (0.0-0.5); Eosinophils % (Auto) 5 % (0-10); Hematocrit 42.8 % (41.0-53.0); Hemoglobin 13.3 g/dL (13.5-16.0); Immature Granulocytes Auto 0.04 Thou/mm3 (0.00-0.00); Lymphocytes # (Auto) 0.5 Thou/mm3 (1.0-4.8); Lymphocytes % (Auto) 6 % (10-50); Mean Corpuscular HGB Conc 31.1 g/dl (31.0-37.0); Mean Corpuscular Hemoglobin 30.2 pg (25.0-35.0); Mean Corpuscular Volume 97 fL (80-100); Monocytes # (Auto) 0.6 Thou/mm3 (0.0-0.8); Monocytes % (Auto) 7 % (0-12); Neutrophils # (Auto) 6.4 Thou/mm3 (1.8-7.7); Neutrophils % (Auto) 81 % (37-80); Nucleated Red Blood Cell # 0.00 Thou/mm3 (0.00-0.00); Nucleated Red Blood Cell % 0 /100 WBC (0); Platelet Count 195 Thou/mm3 (140-440); RDW Standard Deviation 51.9 fL (35.1-43.9); Red Blood Count 4.41 Miln/mm3 (4.50-5.90); White Blood Count 7.9 Thou/mm3 (3.8-10.6)
[2025-04-03 12:55] LABS: Albumin, Serum 4.5 gm/dL (3.4-4.8); Anion Gap 8 (7-16); BUN/Creatinine Ratio 18 Ratio (12-20); Blood Urea Nitrogen 21 mg/dL (9-23); Calcium 9.7 mg/dL (8.3-10.6); Calcium (Corrected) 9.7 mg/dL (8.5-10.1); Carbon Dioxide 29.8 mMol/L (20.0-31.0); Chloride 105 mMol/L (98-107); Creatinine (Component) 1.2 mg/dL (0.6-1.3); Glucose 98 mg/dL (74-106); Osmolality,Calculated 287 (275-295); Phosphorous 3.1 mg/dL (2.4-5.1); Potassium 4.6 mMol/L (3.4-5.1); Sodium 143 mMol/L (136-145); eGFR > 60 See Note
[2025-04-03 12:55] LABS: Creatinine MALB Rnd Ur 82 mg/dL (30-125); Microalbumin Creat Ratio 137 mg/gCrea (<30); Microalbumin, Random Urine 112 mg/L (0-300)
== END | disposition home or self-care (01) ==
LOC: COPL 10:56
PROVIDERS: PCP Family Medicine; Referring Provider Internal Medicine; Visit Provider Internal Medicine
DX: I12.9 Hypertensive chronic kidney disease with stage 1 through stage 4 chronic kidney disease, or unspecified chronic kidney disease (principal); N18.30 Chronic kidney disease, stage 3 unspecified; R80.0 Isolated proteinuria
CPT/HCPCS: 36415; 80069; 82043; 82570; 85025